=== PATIENT | male | born 1945 | race Hispanic/Latino ===

== ENCOUNTER 2021-12-10 13:59 | Inpatient (IN) | payer MEDICARE, MEDICAID ==
[2021-12-11 10:26] LABS: Basophils % (Auto) 0.4 % (0.0-1.8); Eosinophils # (Auto) 0.1 K/mm3 (0.0-0.4); Eosinophils % (Auto) 1.5 % (0.0-4.3); Hematocrit 37.5 % (35.5-45.6); Hemoglobin 12.2 gm/dl (11.8-15.2); Lymphocytes % (Auto) 22.4 % (13.4-35.0); Mean Corpuscular HGB Conc 33 % (32-34); Mean Corpuscular Volume 102 fl (84-94); Monocytes # (Auto) 0.5 K/mm3 (0.0-0.8); Platelet Count 163 K/mm3 (140-440); Red Blood Count 3.67 M/mm3 (3.65-5.03); Red Cell Distribution Width 15.6 % (13.2-15.2)
[2021-12-11 10:49] LABS: Alanine Aminotransferase 15 units/L (7-56); Albumin 4.1 g/dL (3.9-5); BUN/Creatinine Ratio 19; Blood Urea Nitrogen 21 mg/dL (9-20); Calcium 9.3 mg/dL (8.4-10.2); Chol/HDL Ratio 1.81 %; HDL Cholesterol 102 mg/dL (40-59); Hemolysis Index 3; LDL Cholesterol,Direct 75 mg/dL (50-130)
--- NOTE | 2021-12-11 11:38 | History and Physical Report ---
GP History & Physical - History of Present Illness Date of admission: 12/10/21 Date of Examination: 12/11/21 Reason for Admission: Danger to self, Failure of Outpatient Treatment, Severe anxiety/depression History of Present Illness: The patient was seen today. He is a 76y/o male patient admitted to [facility] for suicidal thoughts and depression. The patient had a plan to shoot himself in the head, prior to arrival. The patient is [place]. He says he endorses crack use. The patient also says he drinks about a pint or two pints daily. He says he is lonely, has no family and lacks support. The patient denies being on any psych meds or seeing a psychiatrist. He denies hallucinations. PAST PSYCHIATRIC HISTORY: Diagnoses: Denies Suicide attempts or Self-harm behavior: Denies Prior psychiatric hospitalizations: Denies Substance Abuse history: crack, alcohol Previous psychiatric medications tried: Could not recall Outpatient treatment: Denies PAST MEDICAL HISTORY: Prostate CA Family Psychiatric History: None reported or documented SOCIAL HISTORY Marital Status: Living Arrangements: alone Employment Status: Retired Access to guns/weapons: Denies Education: History of Abuse:Denies Legal History: Denies REVIEW OF SYSTEMS Constitutional: Negative for weight loss ENT: Negative for stridor Respiratory: Negative for cough or hemoptysis All other systems reviewed and are negative MENTAL STATUS EXAMINATION General Appearance and Behavior: Age appropriate, wearing appropriate clothes, cooperative, polite with questioning, good eye contact Cooperation: cooperative Psychomotor Behavior: Psychomotor normal Mood: Depressed Affect and affective range: congruent with stated affect Thought Process: goal directed Thought Content: None Speech: Normal volume, Regular rate and rhythm Suicidal Ideation: Yes Homicidal Ideation: Denies Hallucination: Denies Delusions: None elicited Impulse Control: Limited Insight and Judgment: Limited Memory: Intact Attention: attentive Orientation: Alert and oriented Diagnoses: Major Depressive Disorder Cocaine Use Disorder Alcohol Dependence Treatment Plan Patient admitted for inpatient psychiatric evaluation, medication adjustment and close monitoring The patient's behavior, mood, sleep and appetite will be closely monitored. Patient enrolled in individual and group therapeutic sessions and encouraged to attend. Patient provided with a safe and structured environment. Patient's physical health needs will be addressed by the Hospitalist. Hospitalist Consulted Labs including CBC, CMP, Lipid profile and Hemoglobin A1C levels ordered for baseline reference Social Assessment will be completed and the Director Safety Council will work with patient and family to ensure a suitable and safe disposition Medication adjustment will be made as clinically indicated Lexapro 5mg po daily Trazodone 50mg po qhs Folic 1mg po daily Multivit daily CIWA Usual Wellness Mandaeism/Preservation The patient agreed on the treatment plan, understood the risk, benefit, alternative treatment, potential consequence of no treatment, and gave informed consent. Estimated days: 7 Post hospital care: primary care provider, psychiatric provider Case staffed with Dr. Briggs Legal Status: Voluntary Reaction to Hospitalization: Accepting Medications and Allergies Allergies Allergy/AdvReac Type Severity Reaction Status Date / Time No Known Allergies Allergy Verified 12/11/21 02:05 Home Medications Medication Instructions Recorded Confirmed Last Taken Type Amoxicillin [Amoxicillin TAB] 875 mg PO BID 12/11/21 12/11/21 Unknown History Results - Results Labs/Vitals: Laboratory Last Values WBC 4.3 K/mm3 (4.5-11.0) L 12/11/21 09:26 RBC 3.67 M/mm3 (3.65-5.03) 12/11/21 09:26 Hgb 12.2 gm/dl (11.8-15.2) 12/11/21 09:26 Hct 37.5 % (35.5-45.6) 12/11/21 09:26 MCV 102 fl (84-94) H 12/11/21 09:26 MCH 33 pg (28-32) H 12/11/21 09:26 MCHC 33 % (32-34) 12/11/21 09:26 RDW 15.6 % (13.2-15.2) H 12/11/21 09:26 Plt Count 163 K/mm3 (140-440) 12/11/21 09:26 Lymph % (Auto) 22.4 % (13.4-35.0) 12/11/21 09:26 [place] % (Auto) 11.0 % (0.0-7.3) H 12/11/21 09:26 Eos % (Auto) 1.5 % (0.0-4.3) 12/11/21 09:26 Baso % (Auto) 0.4 % (0.0-1.8) 12/11/21 09:26 Lymph # (Auto) 1.0 K/mm3 (1.2-5.4) L 12/11/21 09:26 [place] # (Auto) 0.5 K/mm3 (0.0-0.8) 12/11/21 09:26 Eos # (Auto) 0.1 K/mm3 (0.0-0.4) 12/11/21 09:26 Baso # (Auto) 0.0 K/mm3 (0.0-0.1) 12/11/21 09:26 Seg Neutrophils % 64.7 % (40.0-70.0) 12/11/21 09:26 Seg Neutrophils # 2.8 K/mm3 (1.8-7.7) 12/11/21 09:26 Sodium 142 mmol/L (137-145) 12/11/21 09:26 Potassium 4.6 mmol/L (3.6-5.0) 12/11/21 09:26 Chloride 103.9 mmol/L (98-107) 12/11/21 09:26 Carbon Dioxide 33 mmol/L (22-30) H 12/11/21 09:26 Anion Gap 10 mmol/L 12/11/21 09:26 BUN 21 mg/dL (9-20) H 12/11/21 09:26 Creatinine 1.1 mg/dL (0.8-1.3) 12/11/21 09:26 Estimated GFR > 60 ml/min 12/11/21 09:26 BUN/Creatinine Ratio 19 % 12/11/21 09:26 Glucose 62 mg/dL (75-100) L 12/11/21 09:26 Hemoglobin A1c 5.2 % (4-6) 12/11/21 09:26 Calcium 9.3 mg/dL (8.4-10.2) 12/11/21 09:26 Total Bilirubin 0.30 mg/dL (0.1-1.2) 12/11/21 09:26 AST 22 units/L (5-40) 12/11/21 09:26 ALT 15 units/L (7-56) 12/11/21 09:26 Alkaline Phosphatase 63 units/L (35-129) 12/11/21 09:26 Total Protein 6.1 g/dL (6.3-8.2) L 12/11/21 09:26 Albumin 4.1 g/dL (3.9-5) 12/11/21 09:26 Albumin/Globulin Ratio 2.1 % 12/11/21 09:26 Triglycerides 100 mg/dL (2-149) 12/11/21 09:26 Cholesterol 185 mg/dL (50-199) 12/11/21 09:26 LDL Cholesterol Direct 75 mg/dL (50-130) 12/11/21 09:26 HDL Cholesterol 102 mg/dL (40-59) H 12/11/21 09:26 Cholesterol/HDL Ratio 1.81 % 12/11/21 09:26 TSH 1.130 mlU/mL (0.270-4.200) 12/11/21 09:26 Last Vital Signs Temp 98.4 F 12/11/21 06:04 Pulse 65 12/11/21 06:04 Resp 12/11/21 06:04 BP 144/74 12/11/21 06:04 Pulse Ox 98 12/11/21 06:04 Physical Examination - Constitutional Vitals: Vital Signs Temp Pulse Resp BP Pulse Ox 98.4 F 65 17 144/74 98 12/11/21 06:04 12/11/21 06:04 12/11/21 06:04 12/11/21 06:04 12/11/21 06:04 Temperature -Last 24 Hours Temperature 98.4 F Temperature 98.9 F Mental Status Exam - Vital signs Last Vital Signs Temp 98.4 F 12/11/21 06:04 Pulse 65 12/11/21 06:04 Resp 12/11/21 06:04 BP 144/74 12/11/21 06:04 Pulse Ox 98 12/11/21 06:04 Physician Certification - Certification Statement Physician Certification Statement: This is an acknowledgement statement that SHAHNZA GONZALES is a 76 year old M who requires inpatient psychiatric admission for treatment which could reasonably be expected to improve the patient's condition for Estimated period of time patient will need to remain in the hospital: [ ] Plan for post-hospital care: [ ]
[2021-12-11] MEDS ORDERED: LORazepam 2 MG/ML VIAL IV PRN (11:42)
[2021-12-11] MEDS ORDERED: NON-FORMULARY EACH (Amoxicillin [Amoxicillin Tab] 875 MG Tablet) PO SCH (11:45)
[2021-12-11] MEDS: FOLIC ACID 1 MG TAB PO SCH (12:49)
[2021-12-11] MEDS: MULTIVITAMINS ,THERAPEUTIC TAB PO SCH (12:49)
[2021-12-11] MEDS ORDERED: ESCITALOPRAM 10 MG TAB PO SCH (13:00)
[2021-12-11] MEDS: AMOXICILLIN/K CLAV 875/125MG TAB PO SCH ×2 (13:01→22:32)
--- NOTE | 2021-12-11 16:21 | Consultation ---
History of Present Illness - Reason for Consult Consult date: 12/11/21 Medical management - History of Present Illness The patient is a 76-year-old male past medical history of major depressive disorder who was admitted to the [facility] psych floor for suicidal thoughts and worsening depression. The patient had a plan to shoot himself in the head prior to arrival. With further questioning, the patient endorsed polysubstance dependence such as crack cocaine and increased alcohol consumption (approximately 1-2 pints daily). Patient lives alone and has extremely limited social support. The hospitalist service was consulted for medical management. Past History Past Medical History: other (Major depressive disorder) Past Surgical History: No surgical history Social history: single, Lives alone, alcohol abuse, full code, other (Crack cocaine dependence) Family history: no significant family history Medications and Allergies Allergies Allergy/AdvReac Type Severity Reaction Status Date / Time No Known Allergies Allergy Verified 12/11/21 02:05 Home Medications Medication Instructions Recorded Confirmed Last Taken Type Amoxicillin [Amoxicillin TAB] 875 mg PO BID 12/11/21 12/11/21 Unknown History Active Meds: Active Medications Amoxicillin/Clavulanate Potassium (Amoxicillin/K Clav 875/125mg Tab) 1 each PO Q12HR [facility] Stop: 12/18/21 13:59 Last Admin: 12/11/21 13:01 Dose: 1 each Escitalopram Oxalate (Escitalopram 10 Mg Tab) 5 mg PO QDAY [facility] Last Admin: 12/11/21 12:49 Dose: 5 mg Folic Acid (Folic Acid 1 Mg Tab) 1 mg PO QDAY [facility] Last Admin: 12/11/21 12:49 Dose: 1 mg Lorazepam (Lorazepam 2 Mg/Ml Vial) 2 mg IV Q4H PRN PRN Reason: CIWA-Ar 8-15 Multivitamins (Multivitamins ,Therapeutic Tab) 1 each PO QDAY [facility] Last Admin: 12/11/21 12:49 Dose: 1 each Trazodone HCl (Trazodone 50 Mg Tab) 50 mg PO QHS [facility] Review of Systems All systems: negative Psychiatric: suicidal ideation, depression, hopelessness Exam - Constitutional Vitals: Temp Pulse Resp BP Pulse Ox 98.4 F 65 17 144/74 98 12/11/21 06:04 12/11/21 06:04 12/11/21 06:04 12/11/21 06:04 12/11/21 06:04 General appearance: Present: no acute distress - EENT Eyes: Present: PERRL, EOM intact ENT: hearing intact, clear oral mucosa - Neck Neck: Present: supple, normal ROM - Respiratory Respiratory effort: normal Respiratory: bilateral: CTA - Cardiovascular Rhythm: regular Heart Sounds: Present: S1 & S2 - Extremities Extremities: no ischemia, pulses intact, pulses symmetrical, No edema, normal temperature, normal color Peripheral Pulses: within normal limits - Abdominal General gastrointestinal: Present: soft, non-tender, non-distended, normal bowel sounds Male genitourinary: Present: deferred - Rectal Rectal Exam: deferred - Integumentary Integumentary: Present: clear, warm, dry - Musculoskeletal Musculoskeletal: generalized weakness - Neurologic Neurologic: CNII-XII intact, moves all extremities - Allied Health Allied health notes reviewed: nursing Results - Labs CBC & Chem 7: 12/11/21 09:26 12/11/21 09:26 Labs: Abnormal lab results 12/11/21 12/11/21 Range/Units 09: 09:26 WBC 4.3 L (4.5-11.0) K/mm3 MCV 102 H (84-94) fl MCH 33 H (28-32) pg RDW 15.6 H (13.2-15.2) % [place] % (Auto) 11.0 H (0.0-7.3) % Lymph # (Auto) 1.0 L (1.2-5.4) K/mm3 Carbon Dioxide 33 H (22-30) mmol/L BUN 21 H (9-20) mg/dL Glucose 62 L (75-100) mg/dL Total Protein 6.1 L (6.3-8.2) g/dL HDL Cholesterol 102 H (40-59) mg/dL Assessment and Plan The patient is a 76-year-old male past medical history of major depressive disorder who was admitted to the [facility] psych floor for suicidal thoughts and worsening depression. The patient had a plan to shoot himself in the head prior to arrival. With further questioning, the patient endorsed polysubstance dependence such as crack cocaine and increased alcohol consumption ( approximately 1-2 pints daily). Patient lives alone and has extremely limited social support. The hospitalist service was consulted for medical management. #Suicidal ideation #Major depressive disorder Management per primary team #Possible acute cystitis without hematuria - Continue augmentin 875/125mg q12hrs x5 days #Advanced care planning -Disease education conducted, care plan discussed, diagnoses discussed, pro gnosis discussed, and patient acknowledges understanding with care plan -Time: +30 min Thank you for this interesting consult. Hospitalist service will continue to follow. Please do not hesitate to reach out should any questions arise.
[2021-12-11] MEDS ORDERED: traZODone 50 MG TAB PO SCH (22:00)
--- NOTE | 2021-12-12 07:40 | Progress Note ---
Subjective Date of service: 12/12/21 Principal diagnosis: MDD Subjective Comment: The patient was seen today. He still endorses suicidal thoughts, but denies a plan. He says he's very depressed. The patient says he only slept "so-so." He denies hallucinations of any kind. REVIEW OF SYSTEMS Constitutional: Negative for weight loss ENT: Negative for stridor Respiratory: Negative for cough or hemoptysis All other systems reviewed and are negative MENTAL STATUS EXAMINATION General Appearance and Behavior: Age appropriate, wearing appropriate clothes, cooperative, polite with questioning, good eye contact Cooperation: cooperative Psychomotor Behavior: Psychomotor normal Mood: Depressed Affect and affective range: congruent with stated affect Thought Process: goal directed Thought Content: None Speech: Normal volume, Regular rate and rhythm Suicidal Ideation: Yes Homicidal Ideation: Denies Hallucination: Denies Delusions: None elicited Impulse Control: Limited Insight and Judgment: Limited Memory: Intact Attention: attentive Orientation: Alert and oriented Diagnoses: Major Depressive Disorder Cocaine Use Disorder Alcohol Dependence Treatment Plan Patient admitted for inpatient psychiatric evaluation, medication adjustment and close monitoring The patient's behavior, mood, sleep and appetite will be closely monitored. Patient enrolled in individual and group therapeutic sessions and encouraged to attend. Patient provided with a safe and structured environment. Patient's physical health needs will be addressed by the Hospitalist. Hospitalist Consulted Labs including CBC, CMP, Lipid profile and Hemoglobin A1C levels ordered for baseline reference Social Assessment will be completed and the Information And Data Architect Analyst will work with patient and family to ensure a suitable and safe disposition Medication adjustment will be made as clinically indicated Increase Lexapro 10mg po daily Increase Trazodone 100mg po qhs Usual Wellness Denominational/Preservation The patient agreed on the treatment plan, understood the risk, benefit, alternative treatment, potential consequence of no treatment, and gave informed consent. Estimated days: 7 Post hospital care: primary care provider, psychiatric provider Case staffed with Dr. Briggs Medications and Allergies Allergies Allergy/AdvReac Type Severity Reaction Status Date / Time No Known Allergies Allergy Verified 12/11/21 02:05 Home Medications Medication Instructions Recorded Confirmed Last Taken Type Amoxicillin [Amoxicillin TAB] 875 mg PO BID 12/11/21 12/11/21 Unknown History Active Meds: Active Medications Amoxicillin/Clavulanate Potassium (Amoxicillin/K Clav 875/125mg Tab) 1 each PO Q12HR [facility] Stop: 12/18/21 13:59 Last Admin: 12/11/21 22:32 Dose: 1 each Escitalopram Oxalate (Escitalopram 10 Mg Tab) 5 mg PO QDAY [facility] Last Admin: 12/11/21 12:49 Dose: 5 mg Folic Acid (Folic Acid 1 Mg Tab) 1 mg PO QDAY [facility] Last Admin: 12/11/21 12:49 Dose: 1 mg Lorazepam (Lorazepam 2 Mg/Ml Vial) 2 mg IV Q4H PRN PRN Reason: CIWA-Ar 8-15 Multivitamins (Multivitamins ,Therapeutic Tab) 1 each PO QDAY [facility] Last Admin: 12/11/21 12:49 Dose: 1 each Trazodone HCl (Trazodone 50 Mg Tab) 50 mg PO QHS [facility] Last Admin: 12/11/21 22:21 Dose: 50 mg Results - Results Labs/Vitals: Laboratory Last Values WBC 4.3 K/mm3 (4.5-11.0) L 12/11/21 09:26 RBC 3.67 M/mm3 (3.65-5.03) 12/11/21 09:26 Hgb 12.2 gm/dl (11.8-15.2) 12/11/21 09:26 Hct 37.5 % (35.5-45.6) 12/11/21 09:26 MCV 102 fl (84-94) H 12/11/21 09:26 MCH 33 pg (28-32) H 12/11/21 09:26 MCHC 33 % (32-34) 12/11/21 09:26 RDW 15.6 % (13.2-15.2) H 12/11/21 09:26 Plt Count 163 K/mm3 (140-440) 12/11/21 09:26 Lymph % (Auto) 22.4 % (13.4-35.0) 12/11/21 09:26 [place] % (Auto) 11.0 % (0.0-7.3) H 12/11/21 09:26 Eos % (Auto) 1.5 % (0.0-4.3) 12/11/21 09:26 Baso % (Auto) 0.4 % (0.0-1.8) 12/11/21 09:26 Lymph # (Auto) 1.0 K/mm3 (1.2-5.4) L 12/11/21 09:26 [place] # (Auto) 0.5 K/mm3 (0.0-0.8) 12/11/21 09:26 Eos # (Auto) 0.1 K/mm3 (0.0-0.4) 12/11/21 09:26 Baso # (Auto) 0.0 K/mm3 (0.0-0.1) 12/11/21 09:26 Seg Neutrophils % 64.7 % (40.0-70.0) 12/11/21 09:26 Seg Neutrophils # 2.8 K/mm3 (1.8-7.7) 12/11/21 09:26 Sodium 142 mmol/L (137-145) 12/11/21 09:26 Potassium 4.6 mmol/L (3.6-5.0) 12/11/21 09:26 Chloride 103.9 mmol/L (98-107) 12/11/21 09:26 Carbon Dioxide 33 mmol/L (22-30) H 12/11/21 09:26 Anion Gap 10 mmol/L 12/11/21 09:26 BUN 21 mg/dL (9-20) H 12/11/21 09:26 Creatinine 1.1 mg/dL (0.8-1.3) 12/11/21 09:26 Estimated GFR > 60 ml/min 12/11/21 09:26 BUN/Creatinine Ratio 19 % 12/11/21 09:26 Glucose 62 mg/dL (75-100) L 12/11/21 09:26 Hemoglobin A1c 5.2 % (4-6) 12/11/21 09:26 Calcium 9.3 mg/dL (8.4-10.2) 12/11/21 09:26 Total Bilirubin 0.30 mg/dL (0.1-1.2) 12/11/21 09:26 AST 22 units/L (5-40) 12/11/21 09:26 ALT 15 units/L (7-56) 12/11/21 09:26 Alkaline Phosphatase 63 units/L (35-129) 12/11/21 09:26 Total Protein 6.1 g/dL (6.3-8.2) L 12/11/21 09:26 Albumin 4.1 g/dL (3.9-5) 12/11/21 09:26 Albumin/Globulin Ratio 2.1 % 12/11/21 09:26 Triglycerides 100 mg/dL (2-149) 12/11/21 09:26 Cholesterol 185 mg/dL (50-199) 12/11/21 09:26 LDL Cholesterol Direct 75 mg/dL (50-130) 12/11/21 09:26 HDL Cholesterol 102 mg/dL (40-59) H 12/11/21 09:26 Cholesterol/HDL Ratio 1.81 % 12/11/21 09:26 TSH 1.130 mlU/mL (0.270-4.200) 12/11/21 09:26 Last Vital Signs Temp 98.6 F 12/11/21 23:21 Pulse 61 12/11/21 23:21 Resp 20 12/11/21 23:21 BP 155/62 12/11/21 23:21 Pulse Ox 93 12/11/21 23:21
[2021-12-12] MEDS: AMOXICILLIN/K CLAV 875/125MG TAB PO SCH ×2 (09:11→21:08)
[2021-12-12] MEDS: MULTIVITAMINS ,THERAPEUTIC TAB PO SCH (09:11)
[2021-12-12] MEDS: FOLIC ACID 1 MG TAB PO SCH (09:11)
[2021-12-12] MEDS ORDERED: ESCITALOPRAM 10 MG TAB PO SCH (10:00)
--- NOTE | 2021-12-12 15:55 | Progress Note ---
Assessment and Plan Assessment and plan: The patient is a 76-year-old male past medical history of major depressive disorder who was admitted to the [facility] psych floor for suicidal thoughts and worsening depression. The patient had a plan to shoot himself in the head prior to arrival. With further questioning, the patient endorsed polysubstance dependence such as crack cocaine and increased alcohol consumption (approximately 1-2 pints daily). Patient lives alone and has extremely limited social support. The hospitalist service was consulted for medical management. #Suicidal ideation #Major depressive disorder Management per primary team #Possible acute cystitis without hematuria - Continue augmentin 875/125mg q12hrs x5 days #Advanced care planning -Disease education conducted, care plan discussed, diagnoses discussed, prognosis discussed, and patient acknowledges understanding with care plan -Time: +30 min Thank you for this interesting consult. Hospitalist service will continue to follow. Please do not hesitate to reach out should any questions arise. Disposition Plan: Continue medical management Total Time Spent with Patient (Minutes): 30 min History Interval history: No acute events overnight. Hospitalist Physical - Constitutional Vitals: Temp Pulse Resp BP Pulse Ox 97.8 F 70 18 113/58 97 12/12/21 09:11 12/12/21 09:11 12/12/21 09:11 12/12/21 09:11 12/12/21 09:11 General appearance: Present: no acute distress, well-nourished - EENT Eyes: Present: PERRL, EOM intact ENT: hearing intact, clear oral mucosa, dentition normal - Neck Neck: Present: supple, normal ROM - Respiratory Respiratory effort: normal Respiratory: bilateral: CTA - Cardiovascular Rhythm: regular Heart Sounds: Present: S1 & S2 - Extremities Extremities: no ischemia, pulses intact, pulses symmetrical, No edema, normal temperature, normal color, Full ROM Peripheral Pulses: within normal limits - Abdominal General gastrointestinal: soft, non-tender, non-distended, normal bowel sounds - Integumentary Integumentary: Present: clear, warm, dry - Psychiatric Psychiatric: appropriate mood/affect, cooperative - Neurologic Neurologic: CNII-XII intact, moves all extremities - Allied Health Allied health notes reviewed: nursing Results - Labs CBC & Chem 7: 12/11/21 09:26 12/11/21 09:26 Labs: Laboratory Last Values WBC 4.3 K/mm3 (4.5-11.0) L 12/11/21 09:26 RBC 3.67 M/mm3 (3.65-5.03) 12/11/21 09:26 Hgb 12.2 gm/dl (11.8-15.2) 12/11/21 09:26 Hct 37.5 % (35.5-45.6) 12/11/21 09:26 MCV 102 fl (84-94) H 12/11/21 09:26 MCH 33 pg (28-32) H 12/11/21 09:26 MCHC 33 % (32-34) 12/11/21 09: RDW 15.6 % (13.2-15.2) H 12/11/21 09: Plt Count 163 K/mm3 (140-440) 12/11/21 09:26 Lymph % (Auto) 22.4 % (13.4-35.0) 12/11/21 09: [place] % (Auto) 11.0 % (0.0-7.3) H 12/11/21 09:26 Eos % (Auto) 1.5 % (0.0-4.3) 12/11/21 09: Baso % (Auto) 0.4 % (0.0-1.8) 12/11/21 09:26 Lymph # (Auto) 1.0 K/mm3 (1.2-5.4) L 12/11/21 09:26 [place] # (Auto) 0.5 K/mm3 (0.0-0.8) 12/11/21 09: Eos # (Auto) 0.1 K/mm3 (0.0-0.4) 12/11/21 09:26 Baso # (Auto) 0.0 K/mm3 (0.0-0.1) 12/11/21 09: Seg Neutrophils % 64.7 % (40.0-70.0) 12/11/21 09: Seg Neutrophils # 2.8 K/mm3 (1.8-7.7) 12/11/21 09:26 Sodium 142 mmol/L (137-145) 12/11/21 09:26 Potassium 4.6 mmol/L (3.6-5.0) 12/11/21 09: Chloride 103.9 mmol/L (98-107) 12/11/21 09:26 Carbon Dioxide 33 mmol/L (22-30) H 12/11/21 09:26 Anion Gap 10 mmol/L 12/11/21 09:26 BUN 21 mg/dL (9-20) H 12/11/21 09:26 Creatinine 1.1 mg/dL (0.8-1.3) 12/11/21 09:26 Estimated GFR > 60 ml/min 12/11/21 09:26 BUN/Creatinine Ratio 19 % 12/11/21 09:26 Glucose 62 mg/dL (75-100) L 12/11/21 09:26 Hemoglobin A1c 5.2 % (4-6) 12/11/21 09:26 Calcium 9.3 mg/dL (8.4-10.2) 12/11/21 09:26 Total Bilirubin 0.30 mg/dL (0.1-1.2) 12/11/21 09:26 AST 22 units/L (5-40) 12/11/21 09:26 ALT 15 units/L (7-56) 12/11/21 09:26 Alkaline Phosphatase 63 units/L (35-129) 12/11/21 09:26 Total Protein 6.1 g/dL (6.3-8.2) L 12/11/21 09:26 Albumin 4.1 g/dL (3.9-5) 12/11/21 09:26 Albumin/Globulin Ratio 2.1 % 12/11/21 09:26 Triglycerides 100 mg/dL (2-149) 12/11/21 09:26 Cholesterol 185 mg/dL (50-199) 12/11/21 09:26 LDL Cholesterol Direct 75 mg/dL (50-130) 12/11/21 09:26 HDL Cholesterol 102 mg/dL (40-59) H 12/11/21 09:26 Cholesterol/HDL Ratio 1.81 % 12/11/21 09:26 TSH 1.130 mlU/mL (0.270-4.200) 12/11/21 09:26 Connell/IV: Voiding Method Toilet Active Medications - Current Medications Current Medications: Generic Name Dose Route Start Last Admin Trade Name Freq PRN Reason Stop Dose Admin Amoxicillin/Clavulanate Potassium 1 each 12/11/21 14:00 12/12/21 09:11 Amoxicillin/K Clav 875/125mg Tab PO 12/18/21 13:59 1 each Q12HR [facility] Administration Escitalopram Oxalate 10 mg 12/12/21 10:00 12/12/21 09:11 Escitalopram 10 Mg Tab PO 10 mg QDAY [facility] Administration Folic Acid 1 mg 12/11/21 12:00 12/12/21 09:11 Folic Acid 1 Mg Tab PO 1 mg QDAY [facility] Administration Lorazepam 2 mg 12/11/21 11:42 Lorazepam 2 Mg/Ml Vial IV Q4H PRN Harsha 8-15 Multivitamins 1 each 12/11/21 13:00 12/12/21 09:11 Multivitamins ,Therapeutic Tab PO 1 each QDAY [facility] Administration Trazodone HCl 100 mg 12/12/21 22:00 Trazodone 100 Mg Tab PO QHS [facility]
[2021-12-12] MEDS: traZODone 100 MG TAB PO SCH (21:07)
--- NOTE | 2021-12-13 08:42 | Progress Note ---
Subjective Date of service: 12/13/21 Principal diagnosis: MDD Subjective Comment: The patient was seen today. He says he is not good. The patient says he still feels depressed and suicidal. He denies having a plan to harm himself. He denies hallucinations. REVIEW OF SYSTEMS Constitutional: Negative for weight loss ENT: Negative for stridor Respiratory: Negative for cough or hemoptysis All other systems reviewed and are negative MENTAL STATUS EXAMINATION General Appearance and Behavior: Age appropriate, wearing appropriate clothes, cooperative, polite with questioning, good eye contact Cooperation: cooperative Psychomotor Behavior: Psychomotor normal Mood: Depressed Affect and affective range: congruent with stated affect Thought Process: goal directed Thought Content: None Speech: Normal volume, Regular rate and rhythm Suicidal Ideation: Yes Homicidal Ideation: Denies Hallucination: Denies Delusions: None elicited Impulse Control: Limited Insight and Judgment: Limited Memory: Intact Attention: attentive Orientation: Alert and oriented Diagnoses: Major Depressive Disorder Cocaine Use Disorder Alcohol Dependence Treatment Plan Patient admitted for inpatient psychiatric evaluation, medication adjustment and close monitoring The patient's behavior, mood, sleep and appetite will be closely monitored. Patient enrolled in individual and group therapeutic sessions and encouraged to attend. Patient provided with a safe and structured environment. Patient's physical health needs will be addressed by the Hospitalist. Hospitalist Consulted Labs including CBC, CMP, Lipid profile and Hemoglobin A1C levels ordered for baseline reference Social Assessment will be completed and the [employer] Supervisor will work with patient and family to ensure a suitable and safe disposition Medication adjustment will be made as clinically indicated Increase Lexapro 20mg po daily Increase Depakote DR 125mg po BID Trazodone 100mg po qhs Usual Wellness [employer]/Preservation The patient agreed on the treatment plan, understood the risk, benefit, alternative treatment, potential consequence of no treatment, and gave informed consent. Estimated days: 7 Post hospital care: primary care provider, psychiatric provider Case staffed with Dr. Briggs Medications and Allergies Allergies Allergy/AdvReac Type Severity Reaction Status Date / Time No Known Allergies Allergy Verified 12/11/21 02:05 Home Medications Medication Instructions Recorded Confirmed Last Taken Type Amoxicillin [Amoxicillin TAB] 875 mg PO BID 12/11/21 12/11/21 Unknown History Active Meds: Active Medications Amoxicillin/Clavulanate Potassium (Amoxicillin/K Clav 875/125mg Tab) 1 each PO Q12HR [facility] Stop: 12/18/21 13:59 Last Admin: 12/12/21 21:08 Dose: 1 each Escitalopram Oxalate (Escitalopram 10 Mg Tab) 10 mg PO QDAY [facility] Last Admin: 12/12/21 09:11 Dose: 10 mg Folic Acid (Folic Acid 1 Mg Tab) 1 mg PO QDAY [facility] Last Admin: 12/12/21 09:11 Dose: 1 mg Lorazepam (Lorazepam 2 Mg/Ml Vial) 2 mg IV Q4H PRN PRN Reason: CIWA-Ar 8-15 Multivitamins (Multivitamins ,Therapeutic Tab) 1 each PO QDAY [facility] Last Admin: 12/12/21 09:11 Dose: 1 each Trazodone HCl (Trazodone 100 Mg Tab) 100 mg PO QHS [facility] Last Admin: 12/12/21 21:07 Dose: 100 mg Results - Results Labs/Vitals: Laboratory Last Values WBC 4.3 K/mm3 (4.5-11.0) L 12/11/21 09:26 RBC 3.67 M/mm3 (3.65-5.03) 12/11/21 09:26 Hgb 12.2 gm/dl (11.8-15.2) 12/11/21 09:26 Hct 37.5 % (35.5-45.6) 12/11/21 09:26 MCV 102 fl (84-94) H 12/11/21 09:26 MCH 33 pg (28-32) H 12/11/21 09:26 MCHC 33 % (32-34) 12/11/21 09:26 RDW 15.6 % (13.2-15.2) H 12/11/21 09:26 Plt Count 163 K/mm3 (140-440) 12/11/21 09:26 Lymph % (Auto) 22.4 % (13.4-35.0) 12/11/21 09:26 [place] % (Auto) 11.0 % (0.0-7.3) H 12/11/21 09:26 Eos % (Auto) 1.5 % (0.0-4.3) 12/11/21 09:26 Baso % (Auto) 0.4 % (0.0-1.8) 12/11/21 09:26 Lymph # (Auto) 1.0 K/mm3 (1.2-5.4) L 12/11/21 09:26 [place] # (Auto) 0.5 K/mm3 (0.0-0.8) 12/11/21 09:26 Eos # (Auto) 0.1 K/mm3 (0.0-0.4) 12/11/21 09:26 Baso # (Auto) 0.0 K/mm3 (0.0-0.1) 12/11/21 09:26 Seg Neutrophils % 64.7 % (40.0-70.0) 12/11/21 09:26 Seg Neutrophils # 2.8 K/mm3 (1.8-7.7) 12/11/21 09:26 Sodium 142 mmol/L (137-145) 12/11/21 09:26 Potassium 4.6 mmol/L (3.6-5.0) 12/11/21 09:26 Chloride 103.9 mmol/L (98-107) 12/11/21 09:26 Carbon Dioxide 33 mmol/L (22-30) H 12/11/21 09:26 Anion Gap 10 mmol/L 12/11/21 09:26 BUN 21 mg/dL (9-20) H 12/11/21 09:26 Creatinine 1.1 mg/dL (0.8-1.3) 12/11/21 09:26 Estimated GFR > 60 ml/min 12/11/21 09:26 BUN/Creatinine Ratio 19 % 12/11/21 09:26 Glucose 62 mg/dL (75-100) L 12/11/21 09:26 Hemoglobin A1c 5.2 % (4-6) 12/11/21 09:26 Calcium 9.3 mg/dL (8.4-10.2) 12/11/21 09:26 Total Bilirubin 0.30 mg/dL (0.1-1.2) 12/11/21 09:26 AST 22 units/L (5-40) 12/11/21 09:26 ALT 15 units/L (7-56) 12/11/21 09:26 Alkaline Phosphatase 63 units/L (35-129) 12/11/21 09:26 Total Protein 6.1 g/dL (6.3-8.2) L 12/11/21 09:26 Albumin 4.1 g/dL (3.9-5) 12/11/21 09:26 Albumin/Globulin Ratio 2.1 % 12/11/21 09:26 Triglycerides 100 mg/dL (2-149) 12/11/21 09:26 Cholesterol 185 mg/dL (50-199) 12/11/21 09:26 LDL Cholesterol Direct 75 mg/dL (50-130) 12/11/21 09:26 HDL Cholesterol 102 mg/dL (40-59) H 12/11/21 09:26 Cholesterol/HDL Ratio 1.81 % 12/11/21 09:26 TSH 1.130 mlU/mL (0.270-4.200) 12/11/21 09:26 Last Vital Signs Temp 98.6 F 12/12/21 19:46 Pulse 62 12/12/21 19:46 Resp 18 12/12/21 19:46 BP 140/54 12/12/21 19:46 Pulse Ox 98 12/12/21 19:46
[2021-12-13] MEDS ORDERED: ONDANSETRON 4 MG ODT TAB PO PRN (08:44)
[2021-12-13] MEDS: FOLIC ACID 1 MG TAB PO SCH (10:16)
[2021-12-13] MEDS: DIVALPROEX DR 125 MG TAB PO SCH ×2 (10:16→22:12)
[2021-12-13] MEDS: MULTIVITAMINS ,THERAPEUTIC TAB PO SCH (10:16)
[2021-12-13] MEDS: AMOXICILLIN/K CLAV 875/125MG TAB PO SCH ×2 (10:16→22:12)
[2021-12-13] MEDS: ESCITALOPRAM 10 MG TAB PO SCH (10:16)
--- NOTE | 2021-12-13 13:49 | Progress Note ---
Assessment and Plan Assessment and plan: The patient is a 76-year-old male past medical history of major depressive disorder who was admitted to the [facility] floor for suicidal thoughts and worsening depression. The patient had a plan to shoot himself in the head prior to arrival. With further questioning, the patient endorsed polysubstance dependence such as crack cocaine and increased alcohol consumption (approximately 1-2 pints daily). Patient lives alone and has extremely limited social support. The hospitalist service was consulted for medical management. #Suicidal ideation #Major depressive disorder Management per primary team #Possible acute cystitis without hematuria - Continue augmentin 875/125mg q12hrs x5 days #Advanced care planning -Disease education conducted, care plan discussed, diagnoses discussed, prognosis discussed, and patient acknowledges understanding with care plan -Time: +30 min Thank you for this interesting consult. Hospitalist service will continue to follow. Please do not hesitate to reach out should any questions arise. Disposition Plan: Continue medical management Total Time Spent with Patient (Minutes): 30 minutes History Interval history: No acute events overnight. Hospitalist Physical - Constitutional Vitals: Temp Pulse Resp BP Pulse Ox 97.8 F 66 18 105/51 97 12/13/21 08:33 12/13/21 08:33 12/13/21 08:33 12/13/21 08:33 12/13/21 08:33 General appearance: Present: no acute distress, well-nourished - EENT Eyes: Present: PERRL, EOM intact ENT: hearing intact, clear oral mucosa - Neck Neck: Present: supple, normal ROM - Respiratory Respiratory effort: normal Respiratory: bilateral: CTA - Cardiovascular Rhythm: regular Heart Sounds: Present: S1 & S2 - Extremities Extremities: no ischemia, pulses intact, pulses symmetrical, No edema, normal temperature, normal color Peripheral Pulses: within normal limits - Abdominal General gastrointestinal: soft, non-tender, non-distended, normal bowel sounds - Integumentary Integumentary: Present: clear, warm, dry - Psychiatric Psychiatric: depressed - Neurologic Neurologic: CNII-XII intact, moves all extremities - Allied Health Allied health notes reviewed: nursing Results - Labs CBC & Chem 7: 12/11/21 09:26 12/11/21 09:26 Labs: Laboratory Last Values WBC 4.3 K/mm3 (4.5-11.0) L 12/11/21 09:26 RBC 3.67 M/mm3 (3.65-5.03) 12/11/21 09:26 Hgb 12.2 gm/dl (11.8-15.2) 12/11/21 09: Hct 37.5 % (35.5-45.6) 12/11/21 09:26 MCV 102 fl (84-94) H 12/11/21 09: MCH 33 pg (28-32) H 12/11/21 09:26 MCHC 33 % (32-34) 12/11/21 09:26 RDW 15.6 % (13.2-15.2) H 12/11/21 09:26 Plt Count 163 K/mm3 (140-440) 12/11/21 09:26 Lymph % (Auto) 22.4 % (13.4-35.0) 12/11/21 09: [place] % (Auto) 11.0 % (0.0-7.3) H 12/11/21 09:26 Eos % (Auto) 1.5 % (0.0-4.3) 12/11/21 09:26 Baso % (Auto) 0.4 % (0.0-1.8) 12/11/21 09: Lymph # (Auto) 1.0 K/mm3 (1.2-5.4) L 12/11/21 09:26 [place] # (Auto) 0.5 K/mm3 (0.0-0.8) 12/11/21 09: Eos # (Auto) 0.1 K/mm3 (0.0-0.4) 12/11/21 09: Baso # (Auto) 0.0 K/mm3 (0.0-0.1) 12/11/21 09: Seg Neutrophils % 64.7 % (40.0-70.0) 12/11/21 09: Seg Neutrophils # 2.8 K/mm3 (1.8-7.7) 12/11/21 09:26 Sodium 142 mmol/L (137-145) 12/11/21 09:26 Potassium 4.6 mmol/L (3.6-5.0) 12/11/21 09: Chloride 103.9 mmol/L (98-107) 12/11/21 09:26 Carbon Dioxide 33 mmol/L (22-30) H 12/11/21 09:26 Anion Gap 10 mmol/L 12/11/21 09:26 BUN 21 mg/dL (9-20) H 12/11/21 09:26 Creatinine 1.1 mg/dL (0.8-1.3) 12/11/21 09:26 Estimated GFR > 60 ml/min 12/11/21 09:26 BUN/Creatinine Ratio 19 % 12/11/21 09:26 Glucose 62 mg/dL (75-100) L 12/11/21 09:26 Hemoglobin A1c 5.2 % (4-6) 12/11/21 09:26 Calcium 9.3 mg/dL (8.4-10.2) 12/11/21 09:26 Total Bilirubin 0.30 mg/dL (0.1-1.2) 12/11/21 09:26 AST 22 units/L (5-40) 12/11/21 09:26 ALT 15 units/L (7-56) 12/11/21 09:26 Alkaline Phosphatase 63 units/L (35-129) 12/11/21 09:26 Total Protein 6.1 g/dL (6.3-8.2) L 12/11/21 09:26 Albumin 4.1 g/dL (3.9-5) 12/11/21 09:26 Albumin/Globulin Ratio 2.1 % 12/11/21 09:26 Triglycerides 100 mg/dL (2-149) 12/11/21 09:26 Cholesterol 185 mg/dL (50-199) 12/11/21 09:26 LDL Cholesterol Direct 75 mg/dL (50-130) 12/11/21 09:26 HDL Cholesterol 102 mg/dL (40-59) H 12/11/21 09:26 Cholesterol/HDL Ratio 1.81 % 12/11/21 09:26 TSH 1.130 mlU/mL (0.270-4.200) 12/11/21 09:26 Connell/IV: Voiding Method Toilet Active Medications - Current Medications Current Medications: Generic Name Dose Route Start Last Admin Trade Name Freq PRN Reason Stop Dose Admin Amoxicillin/Clavulanate Potassium 1 each 12/11/21 14:00 12/13/21 10:16 Amoxicillin/K Clav 875/125mg Tab PO 12/18/21 13:59 1 each Q12HR [facility] Administration Divalproex Sodium 125 mg 12/13/21 10:00 12/13/21 10:[address] 125 Mg Tab PO 125 mg BID [facility] Administration Escitalopram Oxalate 20 mg 12/13/21 10:00 12/13/21 10:16 Escitalopram 10 Mg Tab PO 20 mg QDAY [facility] Administration Folic Acid 1 mg 12/11/21 12:00 12/13/21 10:16 Folic Acid 1 Mg Tab PO 1 mg QDAY [facility] Administration Lorazepam 2 mg 12/11/21 11:42 Lorazepam 2 Mg/Ml Vial IV Q4H PRN ALEXANDRANitin 8-15 Multivitamins 1 each 12/11/21 13:00 12/13/21 10:16 Multivitamins ,Therapeutic Tab PO 1 each QDAY [facility] Administration Ondansetron HCl 4 mg 12/13/21 08:44 12/13/21 10:16 Ondansetron 4 Mg Odt Tab PO 4 mg Q8H PRN Administration Nausea And Vomiting Trazodone HCl 100 mg 12/12/21 22:00 12/12/21 21:07 Trazodone 100 Mg Tab PO 100 mg QHS [facility] Administration
[2021-12-13] MEDS ORDERED: LORazepam 2 MG/ML VIAL IM PRN (20:07)
[2021-12-13] MEDS: traZODone 100 MG TAB PO SCH (22:12)
[2021-12-14] MEDS: MULTIVITAMINS ,THERAPEUTIC TAB PO SCH (10:00)
[2021-12-14] MEDS: ESCITALOPRAM 10 MG TAB PO SCH (10:00)
[2021-12-14] MEDS: AMOXICILLIN/K CLAV 875/125MG TAB PO SCH ×2 (10:00→21:45)
[2021-12-14] MEDS: FOLIC ACID 1 MG TAB PO SCH (10:00)
[2021-12-14] MEDS: DIVALPROEX DR 125 MG TAB PO SCH (10:00)
--- NOTE | 2021-12-14 10:07 | Progress Note ---
Subjective Date of service: 12/14/21 Principal diagnosis: MDD Subjective Comment: The patient was seen today. He says he is depressed and suicidal. The patient says he plans to borrow a gun and shoot himself. The patient denies hallucinations. He complains of being constipated. REVIEW OF SYSTEMS Constitutional: Negative for weight loss ENT: Negative for stridor Respiratory: Negative for cough or hemoptysis All other systems reviewed and are negative MENTAL STATUS EXAMINATION General Appearance and Behavior: Age appropriate, wearing appropriate clothes, cooperative, polite with questioning, good eye contact Cooperation: cooperative Psychomotor Behavior: Psychomotor normal Mood: Depressed Affect and affective range: congruent with stated affect Thought Process: goal directed Thought Content: None Speech: Normal volume, Regular rate and rhythm Suicidal Ideation: Yes Homicidal Ideation: Denies Hallucination: Denies Delusions: None elicited Impulse Control: Limited Insight and Judgment: Limited Memory: Intact Attention: attentive Orientation: Alert and oriented Diagnoses: Major Depressive Disorder Cocaine Use Disorder Alcohol Dependence Treatment Plan Patient admitted for inpatient psychiatric evaluation, medication adjustment and close monitoring The patient's behavior, mood, sleep and appetite will be closely monitored. Patient enrolled in individual and group therapeutic sessions and encouraged to attend. Patient provided with a safe and structured environment. Patient's physical health needs will be addressed by the Hospitalist. Hospitalist Consulted Labs including CBC, CMP, Lipid profile and Hemoglobin A1C levels ordered for baseline reference Social Assessment will be completed and the Supervisor Paper Testing will work with patient and family to ensure a suitable and safe disposition Medication adjustment will be made as clinically indicated Docusate 100mg po BID MOM 30ml q4h prn constipation Lexapro 20mg po daily Increase Depakote DR 250mg po BID Trazodone 100mg po qhs Usual Wellness [employer]/Preservation The patient agreed on the treatment plan, understood the risk, benefit, alternative treatment, potential consequence of no treatment, and gave informed consent. Estimated days: 7 Post hospital care: primary care provider, psychiatric provider Case staffed with Dr. Briggs Medications and Allergies Allergies Allergy/AdvReac Type Severity Reaction Status Date / Time No Known Allergies Allergy Verified 12/11/21 02:05 Home Medications Medication Instructions Recorded Confirmed Last Taken Type Amoxicillin [Amoxicillin TAB] 875 mg PO BID 12/11/21 12/11/21 Unknown History Active Meds: Active Medications Amoxicillin/Clavulanate Potassium (Amoxicillin/K Clav 875/125mg Tab) 1 each PO Q12HR [facility] Stop: 12/18/21 13:59 Last Admin: 12/14/21 10:00 Dose: 1 each Divalproex Sodium (Divalproex Dr 125 Mg Tab) 125 mg PO BID [facility] Last Admin: 12/14/21 10:00 Dose: 125 mg Escitalopram Oxalate (Escitalopram 10 Mg Tab) 20 mg PO QDAY [facility] Last Admin: 12/14/21 10:00 Dose: 20 mg Folic Acid (Folic Acid 1 Mg Tab) 1 mg PO QDAY [facility] Last Admin: 12/14/21 10:00 Dose: 1 mg Lorazepam (Lorazepam 2 Mg/Ml Vial) 2 mg IM Q4H PRN PRN Reason: AGITATION Multivitamins (Multivitamins ,Therapeutic Tab) 1 each PO QDAY [facility] Last Admin: 12/14/21 10:00 Dose: 1 each Ondansetron HCl (Ondansetron 4 Mg Odt Tab) 4 mg PO Q8H PRN PRN Reason: Nausea And Vomiting Last Admin: 12/13/21 10:16 Dose: 4 mg Trazodone HCl (Trazodone 100 Mg Tab) 100 mg PO QHS [facility] Last Admin: 12/13/21 22:12 Dose: 100 mg Results - Results Labs/Vitals: Laboratory Last Values WBC 4.3 K/mm3 (4.5-11.0) L 12/11/21 09:26 RBC 3.67 M/mm3 (3.65-5.03) 12/11/21 09:26 Hgb 12.2 gm/dl (11.8-15.2) 12/11/21 09:26 Hct 37.5 % (35.5-45.6) 12/11/21 09:26 MCV 102 fl (84-94) H 12/11/21 09:26 MCH 33 pg (28-32) H 12/11/21 09:26 MCHC 33 % (32-34) 12/11/21 09:26 RDW 15.6 % (13.2-15.2) H 12/11/21 09:26 Plt Count 163 K/mm3 (140-440) 12/11/21 09:26 Lymph % (Auto) 22.4 % (13.4-35.0) 12/11/21 09:26 [place] % (Auto) 11.0 % (0.0-7.3) H 12/11/21 09:26 Eos % (Auto) 1.5 % (0.0-4.3) 12/11/21 09:26 Baso % (Auto) 0.4 % (0.0-1.8) 12/11/21 09:26 Lymph # (Auto) 1.0 K/mm3 (1.2-5.4) L 12/11/21 09:26 [place] # (Auto) 0.5 K/mm3 (0.0-0.8) 12/11/21 09:26 Eos # (Auto) 0.1 K/mm3 (0.0-0.4) 12/11/21 09:26 Baso # (Auto) 0.0 K/mm3 (0.0-0.1) 12/11/21 09:26 Seg Neutrophils % 64.7 % (40.0-70.0) 12/11/21 09:26 Seg Neutrophils # 2.8 K/mm3 (1.8-7.7) 12/11/21 09:26 Sodium 142 mmol/L (137-145) 12/11/21 09:26 Potassium 4.6 mmol/L (3.6-5.0) 12/11/21 09:26 Chloride 103.9 mmol/L (98-107) 12/11/21 09:26 Carbon Dioxide 33 mmol/L (22-30) H 12/11/21 09:26 Anion Gap 10 mmol/L 12/11/21 09:26 BUN 21 mg/dL (9-20) H 12/11/21 09:26 Creatinine 1.1 mg/dL (0.8-1.3) 12/11/21 09:26 Estimated GFR > 60 ml/min 12/11/21 09:26 BUN/Creatinine Ratio 19 % 12/11/21 09:26 Glucose 62 mg/dL (75-100) L 12/11/21 09:26 Hemoglobin A1c 5.2 % (4-6) 12/11/21 09:26 Calcium 9.3 mg/dL (8.4-10.2) 12/11/21 09:26 Total Bilirubin 0.30 mg/dL (0.1-1.2) 12/11/21 09:26 AST 22 units/L (5-40) 12/11/21 09:26 ALT 15 units/L (7-56) 12/11/21 09:26 Alkaline Phosphatase 63 units/L (35-129) 12/11/21 09:26 Total Protein 6.1 g/dL (6.3-8.2) L 12/11/21 09:26 Albumin 4.1 g/dL (3.9-5) 12/11/21 09:26 Albumin/Globulin Ratio 2.1 % 12/11/21 09:26 Triglycerides 100 mg/dL (2-149) 12/11/21 09:26 Cholesterol 185 mg/dL (50-199) 12/11/21 09:26 LDL Cholesterol Direct 75 mg/dL (50-130) 12/11/21 09:26 HDL Cholesterol 102 mg/dL (40-59) H 12/11/21 09:26 Cholesterol/HDL Ratio 1.81 % 12/11/21 09:26 TSH 1.130 mlU/mL (0.270-4.200) 12/11/21 09:26 Last Vital Signs Temp 98.6 F 12/14/21 06:11 Pulse 58 L 12/14/21 06:11 Resp 17 12/14/21 06:11 BP 104/38 12/14/21 06:11 Pulse Ox 96 12/14/21 06:11
[2021-12-14] MEDS ORDERED: MAGNESIUM HYDROXIDE (MOM) ORAL LIQD UDC PO PRN (11:00)
[2021-12-14] MEDS: DOCUSATE SODIUM 100 MG CAP PO SCH ×2 (11:39→21:45)
--- NOTE | 2021-12-14 12:39 | Progress Note ---
Assessment and Plan Assessment and plan: The patient is a 76-year-old male past medical history of major depressive disorder who was admitted to the [facility] floor for suicidal thoughts and worsening depression. The patient had a plan to shoot himself in the head prior to arrival. With further questioning, the patient endorsed polysubstance dependence such as crack cocaine and increased alcohol consumption (approximately 1-2 pints daily). Patient lives alone and has extremely limited social support. The hospitalist service was consulted for medical management. #Suicidal ideation #Major depressive disorder Management per primary team #Possible acute cystitis without hematuria - Continue augmentin 875/125mg q12hrs x5 days #Advanced care planning -Disease education conducted, care plan discussed, diagnoses discussed, prognosis discussed, and patient acknowledges understanding with care plan -Time: +30 min Thank you for this interesting consult. Hospitalist service will continue to follow. Please do not hesitate to reach out should any questions arise. Disposition Plan: Continue medical management Total Time Spent with Patient (Minutes): 30 minutes History Interval history: No acute events overnight. Hospitalist Physical - Constitutional Vitals: Temp Pulse Resp BP Pulse Ox 98.6 F 58 L 17 104/38 96 12/14/21 06:11 12/14/21 06:11 12/14/21 06:11 12/14/21 06:11 12/14/21 06:11 General appearance: Present: no acute distress, well-nourished - EENT Eyes: Present: PERRL, EOM intact ENT: hearing intact, clear oral mucosa - Neck Neck: Present: supple, normal ROM - Respiratory Respiratory effort: normal Respiratory: bilateral: CTA - Cardiovascular Rhythm: regular Heart Sounds: Present: S1 & S2 - Extremities Extremities: no ischemia, pulses intact, pulses symmetrical, No edema, normal temperature, normal color Peripheral Pulses: within normal limits - Abdominal General gastrointestinal: soft, non-tender, non-distended, normal bowel sounds - Integumentary Integumentary: Present: clear, warm, dry - Psychiatric Psychiatric: appropriate mood/affect - Neurologic Neurologic: CNII-XII intact, moves all extremities - Allied Health Allied health notes reviewed: nursing Results - Labs CBC & Chem 7: 12/11/21 09:26 12/11/21 09:26 Labs: Laboratory Last Values WBC 4.3 K/mm3 (4.5-11.0) L 12/11/21 09:26 RBC 3.67 M/mm3 (3.65-5.03) 12/11/21 09:26 Hgb 12.2 gm/dl (11.8-15.2) 12/11/21 09:26 Hct 37.5 % (35.5-45.6) 12/11/21 09:26 MCV 102 fl (84-94) H 12/11/21 09:26 MCH 33 pg (28-32) H 12/11/21 09:26 MCHC 33 % (32-34) 12/11/21 09:26 RDW 15.6 % (13.2-15.2) H 12/11/21 09:26 Plt Count 163 K/mm3 (140-440) 12/11/21 09:26 Lymph % (Auto) 22.4 % (13.4-35.0) 12/11/21 09:26 [place] % (Auto) 11.0 % (0.0-7.3) H 12/11/21 09:26 Eos % (Auto) 1.5 % (0.0-4.3) 12/11/21 09:26 Baso % (Auto) 0.4 % (0.0-1.8) 12/11/21 09: Lymph # (Auto) 1.0 K/mm3 (1.2-5.4) L 12/11/21 09:26 [place] # (Auto) 0.5 K/mm3 (0.0-0.8) 12/11/21 09: Eos # (Auto) 0.1 K/mm3 (0.0-0.4) 12/11/21 09:26 Baso # (Auto) 0.0 K/mm3 (0.0-0.1) 12/11/21 09:26 Seg Neutrophils % 64.7 % (40.0-70.0) 12/11/21 09: Seg Neutrophils # 2.8 K/mm3 (1.8-7.7) 12/11/21 09:26 Sodium 142 mmol/L (137-145) 12/11/21 09:26 Potassium 4.6 mmol/L (3.6-5.0) 12/11/21 09:26 Chloride 103.9 mmol/L (98-107) 09/09/22 09:26 Carbon Dioxide 33 mmol/L (22-30) H 12/11/21 09:26 Anion Gap 10 mmol/L 12/11/21 09:26 BUN 21 mg/dL (9-20) H 12/11/21 09:26 Creatinine 1.1 mg/dL (0.8-1.3) 12/11/21 09:26 Estimated GFR > 60 ml/min 12/11/21 09:26 BUN/Creatinine Ratio 19 % 12/11/21 09:26 Glucose 62 mg/dL (75-100) L 12/11/21 09:26 Hemoglobin A1c 5.2 % (4-6) 12/11/21 09:26 Calcium 9.3 mg/dL (8.4-10.2) 12/11/21 09:26 Total Bilirubin 0.30 mg/dL (0.1-1.2) 12/11/21 09:26 AST 22 units/L (5-40) 12/11/21 09:26 ALT 15 units/L (7-56) 12/11/21 09:26 Alkaline Phosphatase 63 units/L (35-129) 12/11/21 09:26 Total Protein 6.1 g/dL (6.3-8.2) L 12/11/21 09:26 Albumin 4.1 g/dL (3.9-5) 12/11/21 09:26 Albumin/Globulin Ratio 2.1 % 12/11/21 09:26 Triglycerides 100 mg/dL (2-149) 12/11/21 09:26 Cholesterol 185 mg/dL (50-199) 12/11/21 09:26 LDL Cholesterol Direct 75 mg/dL (50-130) 12/11/21 09:26 HDL Cholesterol 102 mg/dL (40-59) H 12/11/21 09:26 Cholesterol/HDL Ratio 1.81 % 12/11/21 09:26 TSH 1.130 mlU/mL (0.270-4.200) 12/11/21 09:26 Connell/IV: Voiding Method Toilet Active Medications - Current Medications Current Medications: Generic Name Dose Route Start Last Admin Trade Name Freq PRN Reason Stop Dose Admin Amoxicillin/Clavulanate Potassium 1 each 12/11/21 14:00 12/14/21 10:00 Amoxicillin/K Clav 875/125mg Tab PO 12/18/21 13:59 1 each Q12HR RUBIN Administration Divalproex Sodium 250 mg 12/14/21 22:[address] 250 Mg Tab PO BID RUBIN Docusate Sodium 100 mg 12/14/21 11:00 12/14/21 11:39 Docusate Sodium 100 Mg Cap PO 100 mg BID RUBIN Administration Escitalopram Oxalate 20 mg 12/13/21 10:00 12/14/21 10:00 Escitalopram 10 Mg Tab PO 20 mg QDAY R[facility] Administration Folic Acid 1 mg 12/11/21 12:00 12/14/21 10:00 Folic Acid 1 Mg Tab PO 1 mg QDAY R[facility] Administration Lorazepam 2 mg 12/13/21 20:07 Lorazepam 2 Mg/Ml Vial IM Q4H PRN AGITATION Magnesium Hydroxide 30 ml 12/14/21 11:00 12/14/21 11:39 Magnesium Hydroxide (Mom) Oral Liqd Udc PO 30 ml Q4H PRN Administration Constipation Multivitamins 1 each 12/11/21 13:00 12/14/21 10:00 Multivitamins ,Therapeutic Tab PO 1 each QDAY RUBIN Administration Ondansetron HCl 4 mg 12/13/21 08:44 12/13/21 10:16 Ondansetron 4 Mg Odt Tab PO 4 mg Q8H PRN Administration Nausea And Vomiting Trazodone HCl 100 mg 12/12/21 22:00 12/13/21 22:12 Trazodone 100 Mg Tab PO 100 mg QHS RUBIN Administration
[2021-12-14] MEDS: traZODone 100 MG TAB PO SCH (21:45)
[2021-12-14] MEDS ORDERED: DIVALPROEX DR 250 MG TAB PO SCH (22:00)
--- NOTE | 2021-12-15 08:37 | Progress Note ---
Subjective Date of service: 12/15/21 Principal diagnosis: MDD Subjective Comment: The patient was seen today. The patient says he feels a little better, but still says he's depressed. He still endorses SI. He denies a plan. REVIEW OF SYSTEMS Constitutional: Negative for weight loss ENT: Negative for stridor Respiratory: Negative for cough or hemoptysis All other systems reviewed and are negative MENTAL STATUS EXAMINATION General Appearance and Behavior: Age appropriate, wearing appropriate clothes, cooperative, polite with questioning, good eye contact Cooperation: cooperative Psychomotor Behavior: Psychomotor normal Mood: Depressed Affect and affective range: congruent with stated affect Thought Process: goal directed Thought Content: None Speech: Normal volume, Regular rate and rhythm Suicidal Ideation: Yes Homicidal Ideation: Denies Hallucination: Denies Delusions: None elicited Impulse Control: Limited Insight and Judgment: Limited Memory: Intact Attention: attentive Orientation: Alert and oriented Diagnoses: Major Depressive Disorder Cocaine Use Disorder Alcohol Dependence Treatment Plan Patient admitted for inpatient psychiatric evaluation, medication adjustment and close monitoring The patient's behavior, mood, sleep and appetite will be closely monitored. Patient enrolled in individual and group therapeutic sessions and encouraged to attend. Patient provided with a safe and structured environment. Patient's physical health needs will be addressed by the Hospitalist. Hospitalist Consulted Labs including CBC, CMP, Lipid profile and Hemoglobin A1C levels ordered for baseline reference Social Assessment will be completed and the Inner Diameter Grinder Tool will work with patient and family to ensure a suitable and safe disposition Medication adjustment will be made as clinically indicated Docusate 100mg po BID MOM 30ml q4h prn constipation Lexapro 20mg po daily Increase Depakote DR 250mg po TID Trazodone 100mg po qhs Usual Wellness Moravian/Preservation The patient agreed on the treatment plan, understood the risk, benefit, alternative treatment, potential consequence of no treatment, and gave informed consent. Estimated days: 7 Post hospital care: primary care provider, psychiatric provider Case staffed with Dr. Briggs Medications and Allergies Allergies Allergy/AdvReac Type Severity Reaction Status Date / Time No Known Allergies Allergy Verified 12/11/21 02:05 Home Medications Medication Instructions Recorded Confirmed Last Taken Type Amoxicillin [Amoxicillin TAB] 875 mg PO BID 12/11/21 12/11/21 Unknown History Active Meds: Active Medications Amoxicillin/Clavulanate Potassium (Amoxicillin/K Clav 875/125mg Tab) 1 each PO Q12HR [facility] Stop: 12/18/21 13:59 Last Admin: 12/14/21 21:45 Dose: 1 each Divalproex Sodium (Divalproex Dr 250 Mg Tab) 250 mg PO BID [facility] Last Admin: 12/14/21 21:45 Dose: 250 mg Docusate Sodium (Docusate Sodium 100 Mg Cap) 100 mg PO BID [facility] Last Admin: 12/14/21 21:45 Dose: 100 mg Escitalopram Oxalate (Escitalopram 10 Mg Tab) 20 mg PO QDAY [facility] Last Admin: 12/14/21 10:00 Dose: 20 mg Folic Acid (Folic Acid 1 Mg Tab) 1 mg PO QDAY [facility] Last Admin: 12/14/21 10:00 Dose: 1 mg Lorazepam (Lorazepam 2 Mg/Ml Vial) 2 mg IM Q4H PRN PRN Reason: AGITATION Magnesium Hydroxide (Magnesium Hydroxide (Mom) Oral Liqd Udc) 30 ml PO Q4H PRN PRN Reason: Constipation Last Admin: 12/14/21 11:39 Dose: 30 ml Multivitamins (Multivitamins ,Therapeutic Tab) 1 each PO QDAY [facility] Last Admin: 12/14/21 10:00 Dose: 1 each Ondansetron HCl (Ondansetron 4 Mg Odt Tab) 4 mg PO Q8H PRN PRN Reason: Nausea And Vomiting Last Admin: 12/13/21 10:16 Dose: 4 mg Trazodone HCl (Trazodone 100 Mg Tab) 100 mg PO QHS [facility] Last Admin: 12/14/21 21:45 Dose: 100 mg Results - Results Labs/Vitals: Laboratory Last Values WBC 4.3 K/mm3 (4.5-11.0) L 12/11/21 09:26 RBC 3.67 M/mm3 (3.65-5.03) 12/11/21 09:26 Hgb 12.2 gm/dl (11.8-15.2) 12/11/21 09:26 Hct 37.5 % (35.5-45.6) 12/11/21 09:26 MCV 102 fl (84-94) H 12/11/21 09:26 MCH 33 pg (28-32) H 12/11/21 09:26 MCHC 33 % (32-34) 12/11/21 09:26 RDW 15.6 % (13.2-15.2) H 12/11/21 09:26 Plt Count 163 K/mm3 (140-440) 12/11/21 09:26 Lymph % (Auto) 22.4 % (13.4-35.0) 12/11/21 09:26 [place] % (Auto) 11.0 % (0.0-7.3) H 12/11/21 09:26 Eos % (Auto) 1.5 % (0.0-4.3) 12/11/21 09:26 Baso % (Auto) 0.4 % (0.0-1.8) 12/11/21 09:26 Lymph # (Auto) 1.0 K/mm3 (1.2-5.4) L 12/11/21 09:26 [place] # (Auto) 0.5 K/mm3 (0.0-0.8) 12/11/21 09:26 Eos # (Auto) 0.1 K/mm3 (0.0-0.4) 12/11/21 09:26 Baso # (Auto) 0.0 K/mm3 (0.0-0.1) 12/11/21 09:26 Seg Neutrophils % 64.7 % (40.0-70.0) 12/11/21 09: Seg Neutrophils # 2.8 K/mm3 (1.8-7.7) 12/11/21 09:26 Sodium 142 mmol/L (137-145) 12/11/21 09:26 Potassium 4.6 mmol/L (3.6-5.0) 12/11/21 09:26 Chloride 103.9 mmol/L (98-107) 12/11/21 09:26 Carbon Dioxide 33 mmol/L (22-30) H 12/11/21 09:26 Anion Gap 10 mmol/L 12/11/21 09:26 BUN 21 mg/dL (9-20) H 12/11/21 09:26 Creatinine 1.1 mg/dL (0.8-1.3) 12/11/21 09:26 Estimated GFR > 60 ml/min 12/11/21 09:26 BUN/Creatinine Ratio 19 % 12/11/21 09:26 Glucose 62 mg/dL (75-100) L 12/11/21 09:26 Hemoglobin A1c 5.2 % (4-6) 12/11/21 09:26 Calcium 9.3 mg/dL (8.4-10.2) 12/11/21 09:26 Total Bilirubin 0.30 mg/dL (0.1-1.2) 12/11/21 09:26 AST 22 units/L (5-40) 12/11/21 09:26 ALT 15 units/L (7-56) 12/11/21 09:26 Alkaline Phosphatase 63 units/L (35-129) 12/11/21 09:26 Total Protein 6.1 g/dL (6.3-8.2) L 12/11/21 09:26 Albumin 4.1 g/dL (3.9-5) 12/11/21 09:26 Albumin/Globulin Ratio 2.1 % 12/11/21 09:26 Triglycerides 100 mg/dL (2-149) 12/11/21 09:26 Cholesterol 185 mg/dL (50-199) 12/11/21 09:26 LDL Cholesterol Direct 75 mg/dL (50-130) 12/11/21 09:26 HDL Cholesterol 102 mg/dL (40-59) H 12/11/21 09:26 Cholesterol/HDL Ratio 1.81 % 12/11/21 09:26 TSH 1.130 mlU/mL (0.270-4.200) 12/11/21 09:26 Last Vital Signs Temp 97.5 F L 12/15/21 08:06 Pulse 62 12/15/21 08:06 Resp 18 12/15/21 08:06 BP 114/51 12/15/21 08:06 Pulse Ox 96 12/15/21 08:06
[2021-12-15] MEDS: ESCITALOPRAM 10 MG TAB PO SCH (09:28)
[2021-12-15] MEDS: DIVALPROEX DR 250 MG TAB PO SCH ×3 (09:28→20:31)
[2021-12-15] MEDS: MULTIVITAMINS ,THERAPEUTIC TAB PO SCH (09:29)
[2021-12-15] MEDS: FOLIC ACID 1 MG TAB PO SCH (09:29)
[2021-12-15] MEDS: DOCUSATE SODIUM 100 MG CAP PO SCH ×2 (09:29→21:44)
[2021-12-15] MEDS: AMOXICILLIN/K CLAV 875/125MG TAB PO SCH ×2 (09:29→21:44)
--- NOTE | 2021-12-15 10:56 | Progress Note ---
Assessment and Plan - Patient Problems (1) Major depression Current Visit: Yes Status: Acute Plan to address problem: Continue medical management, currently behavior therapy. Supportive care. (2) Vascular dementia with behavior disturbance Current Visit: Yes Status: Acute Plan to address problem: Verbal prompting, verbal redirection, benzodiazepine therapy as clinically indicated. (3) Cerebral atherosclerosis Current Visit: Yes Status: Acute Plan to address problem: Risk factor reduction, antiplatelet therapy as clinically indicated. (4) Advance care planning Current Visit: Yes Status: Acute Plan to address problem: Disease education done, care plan discussed, diagnoses discussed, prognosis discussed, +30 minutes. (5) Preventative health care Current Visit: Yes Status: Acute Plan to address problem: Patient counseled regarding home safety precautions, outpatient follow-up with primary care physician for all age and risk factor proper screening test. +30 minutes. History Interval history: 76 YO Male with Vascular Dementia with Behavioral Disturbance, Cerebral Atherosclerosis, MDD, PSA admitted to [facility] for psychiatric stabilization. Consult placed by Dr. Lundy for medical management. Patient seen and evaluated in the recreation room. Patient appears to be at baseline level of cognition and function. Hospitalist Physical - Constitutional Vitals: Temp Pulse Resp BP Pulse Ox 97.5 F L 62 18 114/51 96 12/15/21 08:06 12/15/21 08:06 12/15/21 08:06 12/15/21 08:06 12/15/21 08:06 General appearance: Present: no acute distress, well-nourished - EENT Eyes: Present: PERRL ENT: hearing decreased - Neck Neck: Present: supple - Respiratory Respiratory effort: normal Respiratory: bilateral: CTA - Cardiovascular Rhythm: regular Heart Sounds: Present: S1 & S2 - Extremities Extremities: no ischemia Peripheral Pulses: within normal limits - Abdominal General gastrointestinal: soft, non-tender, non-distended - Integumentary Integumentary: Present: clear, dry - Psychiatric Psychiatric: cooperative - Neurologic Neurologic: CNII-XII intact Results - Labs CBC & Chem 7: 12/11/21 09:26 12/11/21 09:26 Labs: Laboratory Last Values WBC 4.3 K/mm3 (4.5-11.0) L 12/11/21 09:26 RBC 3.67 M/mm3 (3.65-5.03) 12/11/21 09:26 Hgb 12.2 gm/dl (11.8-15.2) 12/11/21 09:26 Hct 37.5 % (35.5-45.6) 12/11/21 09:26 MCV 102 fl (84-94) H 12/11/21 09:26 MCH 33 pg (28-32) H 12/11/21 09:26 MCHC 33 % (32-34) 12/11/21 09: RDW 15.6 % (13.2-15.2) H 12/11/21 09:26 Plt Count 163 K/mm3 (140-440) 12/11/21 09:26 Lymph % (Auto) 22.4 % (13.4-35.0) 12/11/21 09:26 [place] % (Auto) 11.0 % (0.0-7.3) H 12/11/21 09:26 Eos % (Auto) 1.5 % (0.0-4.3) 12/11/21 09: Baso % (Auto) 0.4 % (0.0-1.8) 12/11/21 09:26 Lymph # (Auto) 1.0 K/mm3 (1.2-5.4) L 12/11/21 09:26 [place] # (Auto) 0.5 K/mm3 (0.0-0.8) 12/11/21 09:26 Eos # (Auto) 0.1 K/mm3 (0.0-0.4) 12/11/21 09:26 Baso # (Auto) 0.0 K/mm3 (0.0-0.1) 12/11/21 09:26 Seg Neutrophils % 64.7 % (40.0-70.0) 12/11/21 09: Seg Neutrophils # 2.8 K/mm3 (1.8-7.7) 12/11/21 09:26 Sodium 142 mmol/L (137-145) 12/11/21 09:26 Potassium 4.6 mmol/L (3.6-5.0) 12/11/21 09:26 Chloride 103.9 mmol/L (98-107) 12/11/21 09:26 Carbon Dioxide 33 mmol/L (22-30) H 12/11/21 09:26 Anion Gap 10 mmol/L 12/11/21 09:26 BUN 21 mg/dL (9-20) H 12/11/21 09:26 Creatinine 1.1 mg/dL (0.8-1.3) 12/11/21 09:26 Estimated GFR > 60 ml/min 12/11/21 09:26 BUN/Creatinine Ratio 19 % 12/11/21 09:26 Glucose 62 mg/dL (75-100) L 12/11/21 09:26 Hemoglobin A1c 5.2 % (4-6) 12/11/21 09:26 Calcium 9.3 mg/dL (8.4-10.2) 12/11/21 09:26 Total Bilirubin 0.30 mg/dL (0.1-1.2) 12/11/21 09:26 AST 22 units/L (5-40) 12/11/21 09:26 ALT 15 units/L (7-56) 12/11/21 09:26 Alkaline Phosphatase 63 units/L (35-129) 12/11/21 09:26 Total Protein 6.1 g/dL (6.3-8.2) L 12/11/21 09:26 Albumin 4.1 g/dL (3.9-5) 12/11/21 09:26 Albumin/Globulin Ratio 2.1 % 12/11/21 09:26 Triglycerides 100 mg/dL (2-149) 12/11/21 09:26 Cholesterol 185 mg/dL (50-199) 12/11/21 09:26 LDL Cholesterol Direct 75 mg/dL (50-130) 12/11/21 09:26 HDL Cholesterol 102 mg/dL (40-59) H 12/11/21 09:26 Cholesterol/HDL Ratio 1.81 % 12/11/21 09:26 TSH 1.130 mlU/mL (0.270-4.200) 12/11/21 09:26 Connell/IV: Voiding Method Toilet Active Medications - Current Medications Current Medications: Generic Name Dose Route Start Last Admin Trade Name Freq PRN Reason Stop Dose Admin Amoxicillin/Clavulanate Potassium 1 each 12/11/21 14:00 12/15/21 09:29 Amoxicillin/K Clav 875/125mg Tab PO 12/18/21 13:59 1 each Q12HR [facility] Administration Divalproex Sodium 250 mg 12/15/21 09:00 12/15/21 09:[address] 250 Mg Tab PO 250 mg TID [facility] Administration Docusate Sodium 100 mg 12/14/21 11:00 12/15/21 09:29 Docusate Sodium 100 Mg Cap PO 100 mg BID [facility] Administration Escitalopram Oxalate 20 mg 12/13/21 10:00 12/15/21 09:28 Escitalopram 10 Mg Tab PO 20 mg QDAY [facility] Administration Folic Acid 1 mg 12/11/21 12:00 12/15/21 09:29 Folic Acid 1 Mg Tab PO 1 mg QDAY [facility] Administration Lorazepam 2 mg 12/13/21 20:07 Lorazepam 2 Mg/Ml Vial IM Q4H PRN AGITATION Magnesium Hydroxide 30 ml 12/14/21 11:00 12/14/21 11:39 Magnesium Hydroxide (Mom) Oral Liqd Udc PO 30 ml Q4H PRN Administration Constipation Multivitamins 1 each 12/11/21 13:00 12/15/21 09:29 Multivitamins ,Therapeutic Tab PO 1 each QDAY [facility] Administration Ondansetron HCl 4 mg 12/13/21 08:44 12/13/21 10:16 Ondansetron 4 Mg Odt Tab PO 4 mg Q8H PRN Administration Nausea And Vomiting Trazodone HCl 100 mg 12/12/21 22:00 12/14/21 21:45 Trazodone 100 Mg Tab PO 100 mg QHS [facility] Administration
[2021-12-15] MEDS: traZODone 100 MG TAB PO SCH (21:44)
--- NOTE | 2021-12-16 09:00 | History and Physical Report ---
GP History & Physical - History of Present Illness Date of admission: 12/15/21 Date of Examination: 12/16/21 Reason for Admission: Danger to self, Failure of Outpatient Treatment, Severe anxiety/depression Legal Status: Voluntary Reaction to Hospitalization: Accepting Medications and Allergies Allergies Allergy/AdvReac Type Severity Reaction Status Date / Time No Known Allergies Allergy Verified 12/11/21 02:05 Home Medications Medication Instructions Recorded Confirmed Last Taken Type Amoxicillin [Amoxicillin TAB] 875 mg PO BID 12/11/21 12/11/21 Unknown History Active Meds: Active Medications Amoxicillin/Clavulanate Potassium (Amoxicillin/K Clav 875/125mg Tab) 1 each PO Q12HR [facility] Stop: 12/18/21 13:59 Last Admin: 12/15/21 21:44 Dose: 1 each Divalproex Sodium (Divalproex Dr 250 Mg Tab) 250 mg PO TID [facility] Last Admin: 12/15/21 20:31 Dose: 250 mg Docusate Sodium (Docusate Sodium 100 Mg Cap) 100 mg PO BID [facility] Last Admin: 12/15/21 21:44 Dose: 100 mg Escitalopram Oxalate (Escitalopram 10 Mg Tab) 20 mg PO QDAY [facility] Last Admin: 12/15/21 09:28 Dose: 20 mg Folic Acid (Folic Acid 1 Mg Tab) 1 mg PO QDAY [facility] Last Admin: 12/15/21 09:29 Dose: 1 mg Lorazepam (Lorazepam 2 Mg/Ml Vial) 2 mg IM Q4H PRN PRN Reason: AGITATION Magnesium Hydroxide (Magnesium Hydroxide (Mom) Oral Liqd Udc) 30 ml PO Q4H PRN PRN Reason: Constipation Last Admin: 12/14/21 11:39 Dose: 30 ml Multivitamins (Multivitamins ,Therapeutic Tab) 1 each PO QDAY [facility] Last Admin: 12/15/21 09:29 Dose: 1 each Ondansetron HCl (Ondansetron 4 Mg Odt Tab) 4 mg PO Q8H PRN PRN Reason: Nausea And Vomiting Last Admin: 12/13/21 10:16 Dose: 4 mg Trazodone HCl (Trazodone 100 Mg Tab) 100 mg PO QHS [facility] Last Admin: 12/15/21 21:44 Dose: 100 mg Results - Results Labs/Vitals: Laboratory Last Values WBC 4.3 K/mm3 (4.5-11.0) L 12/11/21 09:26 RBC 3.67 M/mm3 (3.65-5.03) 12/11/21 09:26 Hgb 12.2 gm/dl (11.8-15.2) 12/11/21 09:26 Hct 37.5 % (35.5-45.6) 12/11/21 09:26 MCV 102 fl (84-94) H 12/11/21 09:26 MCH 33 pg (28-32) H 12/11/21 09:26 MCHC 33 % (32-34) 12/11/21 09:26 RDW 15.6 % (13.2-15.2) H 12/11/21 09:26 Plt Count 163 K/mm3 (140-440) 12/11/21 09:26 Lymph % (Auto) 22.4 % (13.4-35.0) 12/11/21 09:26 [place] % (Auto) 11.0 % (0.0-7.3) H 12/11/21 09:26 Eos % (Auto) 1.5 % (0.0-4.3) 12/11/21 09:26 Baso % (Auto) 0.4 % (0.0-1.8) 12/11/21 09:26 Lymph # (Auto) 1.0 K/mm3 (1.2-5.4) L 12/11/21 09:26 [place] # (Auto) 0.5 K/mm3 (0.0-0.8) 12/11/21 09: Eos # (Auto) 0.1 K/mm3 (0.0-0.4) 12/11/21 09:26 Baso # (Auto) 0.0 K/mm3 (0.0-0.1) 12/11/21 09:26 Seg Neutrophils % 64.7 % (40.0-70.0) 12/11/21 09: Seg Neutrophils # 2.8 K/mm3 (1.8-7.7) 12/11/21 09:26 Sodium 142 mmol/L (137-145) 12/11/21 09:26 Potassium 4.6 mmol/L (3.6-5.0) 12/11/21 09:26 Chloride 103.9 mmol/L (98-107) 12/11/21 09:26 Carbon Dioxide 33 mmol/L (22-30) H 12/11/21 09:26 Anion Gap 10 mmol/L 12/11/21 09:26 BUN 21 mg/dL (9-20) H 12/11/21 09:26 Creatinine 1.1 mg/dL (0.8-1.3) 12/11/21 09:26 Estimated GFR > 60 ml/min 12/11/21 09:26 BUN/Creatinine Ratio 19 % 12/11/21 09:26 Glucose 62 mg/dL (75-100) L 12/11/21 09:26 Hemoglobin A1c 5.2 % (4-6) 12/11/21 09:26 Calcium 9.3 mg/dL (8.4-10.2) 12/11/21 09:26 Total Bilirubin 0.30 mg/dL (0.1-1.2) 12/11/21 09:26 AST 22 units/L (5-40) 12/11/21 09:26 ALT 15 units/L (7-56) 12/11/21 09:26 Alkaline Phosphatase 63 units/L (35-129) 12/11/21 09:26 Total Protein 6.1 g/dL (6.3-8.2) L 12/11/21 09:26 Albumin 4.1 g/dL (3.9-5) 12/11/21 09:26 Albumin/Globulin Ratio 2.1 % 12/11/21 09:26 Triglycerides 100 mg/dL (2-149) 12/11/21 09:26 Cholesterol 185 mg/dL (50-199) 12/11/21 09:26 LDL Cholesterol Direct 75 mg/dL (50-130) 12/11/21 09:26 HDL Cholesterol 102 mg/dL (40-59) H 12/11/21 09:26 Cholesterol/HDL Ratio 1.81 % 12/11/21 09:26 TSH 1.130 mlU/mL (0.270-4.200) 12/11/21 09:26 Last Vital Signs Temp 98.6 F 12/15/21 19:29 Pulse 62 12/15/21 08:06 Resp 18 12/15/21 19:29 BP 120/48 12/15/21 19:29 Pulse Ox 96 12/15/21 08:06 Physical Examination - Constitutional Vitals: Vital Signs Temp Pulse Resp BP Pulse Ox 98.6 F 62 18 120/48 96 12/15/21 19:29 12/15/21 08:06 12/15/21 19:29 12/15/21 19:29 12/15/21 08:06 Temperature -Last 24 Hours Temperature 98.6 F Mental Status Exam - Vital signs Last Vital Signs Temp 98.6 F 12/15/21 19:29 Pulse 62 12/15/21 08:06 Resp 18 12/15/21 19:29 BP 120/48 12/15/21 19:29 Pulse Ox 96 12/15/21 08:06 Physician Certification - Certification Statement Physician Certification Statement: This is an acknowledgement statement that SHAHNAZ GONZALES is a 76 year old M who requires inpatient psychiatric admission for treatment which could reasonably be expected to improve the patient's condition for Estimated period of time patient will need to remain in the hospital: [ ] Plan for post-hospital care: [ ]
--- NOTE | 2021-12-16 09:05 | Progress Note ---
Subjective Date of service: 12/16/21 Principal diagnosis: MDD Subjective Comment: The patient was seen today. He says he's a little better but still depressed. He still endorses suicidal thoughts, but has no plan. He denies hallucinations of any kind. REVIEW OF SYSTEMS Constitutional: Negative for weight loss ENT: Negative for stridor Respiratory: Negative for cough or hemoptysis All other systems reviewed and are negative MENTAL STATUS EXAMINATION General Appearance and Behavior: Age appropriate, wearing appropriate clothes, cooperative, polite with questioning, good eye contact Cooperation: cooperative Psychomotor Behavior: Psychomotor normal Mood: Depressed Affect and affective range: congruent with stated affect Thought Process: goal directed Thought Content: None Speech: Normal volume, Regular rate and rhythm Suicidal Ideation: Yes Homicidal Ideation: Denies Hallucination: Denies Delusions: None elicited Impulse Control: Limited Insight and Judgment: Limited Memory: Intact Attention: attentive Orientation: Alert and oriented Diagnoses: Major Depressive Disorder Cocaine Use Disorder Alcohol Dependence Treatment Plan Patient admitted for inpatient psychiatric evaluation, medication adjustment and close monitoring The patient's behavior, mood, sleep and appetite will be closely monitored. Patient enrolled in individual and group therapeutic sessions and encouraged to attend. Patient provided with a safe and structured environment. Patient's physical health needs will be addressed by the Hospitalist. Hospitalist Consulted Labs including CBC, CMP, Lipid profile and Hemoglobin A1C levels ordered for baseline reference Social Assessment will be completed and the Risk Analyst will work with patient and family to ensure a suitable and safe disposition Medication adjustment will be made as clinically indicated Increase Depakote DR 500mg po BID Usual Wellness Bah[place]/Preservation The patient agreed on the treatment plan, understood the risk, benefit, alternative treatment, potential consequence of no treatment, and gave informed consent. Estimated days: 7 Post hospital care: primary care provider, psychiatric provider Case staffed with Dr. Briggs Medications and Allergies Allergies Allergy/AdvReac Type Severity Reaction Status Date / Time No Known Allergies Allergy Verified 12/11/21 02:05 Home Medications Medication Instructions Recorded Confirmed Last Taken Type Amoxicillin [Amoxicillin TAB] 875 mg PO BID 12/11/21 12/11/21 Unknown History Active Meds: Active Medications Amoxicillin/Clavulanate Potassium (Amoxicillin/K Clav 875/125mg Tab) 1 each PO Q12HR [facility] Stop: 12/18/21 13:59 Last Admin: 12/15/21 21:44 Dose: 1 each Divalproex Sodium (Divalproex Dr 250 Mg Tab) 250 mg PO TID [facility] Last Admin: 12/15/21 20:31 Dose: 250 mg Docusate Sodium (Docusate Sodium 100 Mg Cap) 100 mg PO BID [facility] Last Admin: 12/15/21 21:44 Dose: 100 mg Escitalopram Oxalate (Escitalopram 10 Mg Tab) 20 mg PO QDAY [facility] Last Admin: 12/15/21 09:28 Dose: 20 mg Folic Acid (Folic Acid 1 Mg Tab) 1 mg PO QDAY [facility] Last Admin: 12/15/21 09:29 Dose: 1 mg Lorazepam (Lorazepam 2 Mg/Ml Vial) 2 mg IM Q4H PRN PRN Reason: AGITATION Magnesium Hydroxide (Magnesium Hydroxide (Mom) Oral Liqd Udc) 30 ml PO Q4H PRN PRN Reason: Constipation Last Admin: 12/14/21 11:39 Dose: 30 ml Multivitamins (Multivitamins ,Therapeutic Tab) 1 each PO QDAY [facility] Last Admin: 12/15/21 09:29 Dose: 1 each Ondansetron HCl (Ondansetron 4 Mg Odt Tab) 4 mg PO Q8H PRN PRN Reason: Nausea And Vomiting Last Admin: 12/13/21 10:16 Dose: 4 mg Trazodone HCl (Trazodone 100 Mg Tab) 100 mg PO QHS [facility] Last Admin: 12/15/21 21:44 Dose: 100 mg Results - Results Labs/Vitals: Laboratory Last Values WBC 4.3 K/mm3 (4.5-11.0) L 12/11/21 09:26 RBC 3.67 M/mm3 (3.65-5.03) 12/11/21 09:26 Hgb 12.2 gm/dl (11.8-15.2) 12/11/21 09:26 Hct 37.5 % (35.5-45.6) 12/11/21 09:26 MCV 102 fl (84-94) H 12/11/21 09:26 MCH 33 pg (28-32) H 12/11/21 09:26 MCHC 33 % (32-34) 12/11/21 09:26 RDW 15.6 % (13.2-15.2) H 12/11/21 09:26 Plt Count 163 K/mm3 (140-440) 12/11/21 09:26 Lymph % (Auto) 22.4 % (13.4-35.0) 12/11/21 09:26 [place] % (Auto) 11.0 % (0.0-7.3) H 12/11/21 09:26 Eos % (Auto) 1.5 % (0.0-4.3) 12/11/21 09:26 Baso % (Auto) 0.4 % (0.0-1.8) 12/11/21 09:26 Lymph # (Auto) 1.0 K/mm3 (1.2-5.4) L 12/11/21 09:26 [place] # (Auto) 0.5 K/mm3 (0.0-0.8) 12/11/21 09:26 Eos # (Auto) 0.1 K/mm3 (0.0-0.4) 12/11/21 09:26 Baso # (Auto) 0.0 K/mm3 (0.0-0.1) 12/11/21 09:26 Seg Neutrophils % 64.7 % (40.0-70.0) 12/11/21 09:26 Seg Neutrophils # 2.8 K/mm3 (1.8-7.7) 12/11/21 09:26 Sodium 142 mmol/L (137-145) 12/11/21 09:26 Potassium 4.6 mmol/L (3.6-5.0) 12/11/21 09:26 Chloride 103.9 mmol/L (98-107) 12/11/21 09:26 Carbon Dioxide 33 mmol/L (22-30) H 12/11/21 09:26 Anion Gap 10 mmol/L 12/11/21 09:26 BUN 21 mg/dL (9-20) H 12/11/21 09:26 Creatinine 1.1 mg/dL (0.8-1.3) 12/11/21 09:26 Estimated GFR > 60 ml/min 12/11/21 09:26 BUN/Creatinine Ratio 19 % 12/11/21 09:26 Glucose 62 mg/dL (75-100) L 12/11/21 09:26 Hemoglobin A1c 5.2 % (4-6) 12/11/21 09:26 Calcium 9.3 mg/dL (8.4-10.2) 09/09/22 09:26 Total Bilirubin 0.30 mg/dL (0.1-1.2) 12/11/21 09:26 AST 22 units/L (5-40) 12/11/21 09:26 ALT 15 units/L (7-56) 12/11/21 09:26 Alkaline Phosphatase 63 units/L (35-129) 12/11/21 09:26 Total Protein 6.1 g/dL (6.3-8.2) L 12/11/21 09:26 Albumin 4.1 g/dL (3.9-5) 12/11/21 09:26 Albumin/Globulin Ratio 2.1 % 12/11/21 09:26 Triglycerides 100 mg/dL (2-149) 12/11/21 09:26 Cholesterol 185 mg/dL (50-199) 12/11/21 09:26 LDL Cholesterol Direct 75 mg/dL (50-130) 12/11/21 09:26 HDL Cholesterol 102 mg/dL (40-59) H 12/11/21 09:26 Cholesterol/HDL Ratio 1.81 % 12/11/21 09:26 TSH 1.130 mlU/mL (0.270-4.200) 12/11/21 09:26 Last Vital Signs Temp 98.6 F 12/15/21 19:29 Pulse 62 12/15/21 08:06 Resp 18 12/15/21 19:29 BP 120/48 12/15/21 19:29 Pulse Ox 96 12/15/21 08:06
[2021-12-16] MEDS: AMOXICILLIN/K CLAV 875/125MG TAB PO SCH ×2 (10:45→21:39)
[2021-12-16] MEDS: ESCITALOPRAM 10 MG TAB PO SCH (10:45)
[2021-12-16] MEDS: MULTIVITAMINS ,THERAPEUTIC TAB PO SCH (10:45)
[2021-12-16] MEDS: DOCUSATE SODIUM 100 MG CAP PO SCH ×2 (10:45→21:30)
[2021-12-16] MEDS: DIVALPROEX DR 500 MG TAB PO SCH ×2 (10:45→21:30)
[2021-12-16] MEDS: FOLIC ACID 1 MG TAB PO SCH (10:45)
[2021-12-16] MEDS: traZODone 100 MG TAB PO SCH (21:30)
[2021-12-17] MEDS: FOLIC ACID 1 MG TAB PO SCH (09:05)
[2021-12-17] MEDS: DIVALPROEX DR 500 MG TAB PO SCH ×2 (09:05→21:31)
[2021-12-17] MEDS: DOCUSATE SODIUM 100 MG CAP PO SCH ×2 (09:05→21:31)
[2021-12-17] MEDS: ESCITALOPRAM 10 MG TAB PO SCH (09:05)
[2021-12-17] MEDS: MULTIVITAMINS ,THERAPEUTIC TAB PO SCH (09:05)
[2021-12-17] MEDS: AMOXICILLIN/K CLAV 875/125MG TAB PO SCH ×2 (09:05→21:31)
--- NOTE | 2021-12-17 10:08 | Progress Note ---
Subjective Date of service: 12/17/21 Principal diagnosis: MDD Subjective Comment: The patient was seen today. The patient says he's doing better, but still endorses SI "on and off." He denies a plan. He says he didn't sleep well. He denies hallucinations. REVIEW OF SYSTEMS Constitutional: Negative for weight loss ENT: Negative for stridor Respiratory: Negative for cough or hemoptysis All other systems reviewed and are negative MENTAL STATUS EXAMINATION General Appearance and Behavior: Age appropriate, wearing appropriate clothes, cooperative, polite with questioning, good eye contact Cooperation: cooperative Psychomotor Behavior: Psychomotor normal Mood: Depressed Affect and affective range: congruent with stated affect Thought Process: goal directed Thought Content: None Speech: Normal volume, Regular rate and rhythm Suicidal Ideation: Yes Homicidal Ideation: Denies Hallucination: Denies Delusions: None elicited Impulse Control: Limited Insight and Judgment: Limited Memory: Intact Attention: attentive Orientation: Alert and oriented Diagnoses: Major Depressive Disorder Cocaine Use Disorder Alcohol Dependence Treatment Plan Patient admitted for inpatient psychiatric evaluation, medication adjustment and close monitoring The patient's behavior, mood, sleep and appetite will be closely monitored. Patient enrolled in individual and group therapeutic sessions and encouraged to attend. Patient provided with a safe and structured environment. Patient's physical health needs will be addressed by the Hospitalist. Hospitalist Consulted Labs including CBC, CMP, Lipid profile and Hemoglobin A1C levels ordered for baseline reference Valproic level Social Assessment will be completed and the Manager Field Services will work with patient and family to ensure a suitable and safe disposition Medication adjustment will be made as clinically indicated Depakote DR 500mg po BID Increase Trazodone 150mg po qhs [facility] The patient agreed on the treatment plan, understood the risk, benefit, alternative treatment, potential consequence of no treatment, and gave informed consent. Estimated days: 7 Post hospital care: primary care provider, psychiatric provider Case staffed with Dr. Briggs Medications and Allergies Allergies Allergy/AdvReac Type Severity Reaction Status Date / Time No Known Allergies Allergy Verified 12/11/21 02:05 Home Medications Medication Instructions Recorded Confirmed Last Taken Type Amoxicillin [Amoxicillin TAB] 875 mg PO BID 12/11/21 12/11/21 Unknown History Active Meds: Active Medications Amoxicillin/Clavulanate Potassium (Amoxicillin/K Clav 875/125mg Tab) 1 each PO Q12HR RUBIN Stop: 12/18/21 13:59 Last Admin: 12/17/21 09:05 Dose: 1 each Divalproex Sodium (Divalproex Dr 500 Mg Tab) 500 mg PO BID [facility] Last Admin: 12/17/21 09:05 Dose: 500 mg Docusate Sodium (Docusate Sodium 100 Mg Cap) 100 mg PO BID [facility] Last Admin: 12/17/21 09:05 Dose: 100 mg Escitalopram Oxalate (Escitalopram 10 Mg Tab) 20 mg PO QDAY [facility] Last Admin: 12/17/21 09:05 Dose: 20 mg Folic Acid (Folic Acid 1 Mg Tab) 1 mg PO QDAY [facility] Last Admin: 12/17/21 09:05 Dose: 1 mg Lorazepam (Lorazepam 2 Mg/Ml Vial) 2 mg IM Q4H PRN PRN Reason: AGITATION Magnesium Hydroxide (Magnesium Hydroxide (Mom) Oral Liqd Udc) 30 ml PO Q4H PRN PRN Reason: Constipation Last Admin: 12/14/21 11:39 Dose: 30 ml Multivitamins (Multivitamins ,Therapeutic Tab) 1 each PO QDAY [facility] Last Admin: 12/17/21 09:05 Dose: 1 each Ondansetron HCl (Ondansetron 4 Mg Odt Tab) 4 mg PO Q8H PRN PRN Reason: Nausea And Vomiting Last Admin: 12/13/21 10:16 Dose: 4 mg Trazodone HCl (Trazodone 100 Mg Tab) 100 mg PO QHS [facility] Last Admin: 12/16/21 21:30 Dose: 100 mg Results - Results Labs/Vitals: Laboratory Last Values WBC 4.3 K/mm3 (4.5-11.0) L 12/11/21 09:26 RBC 3.67 M/mm3 (3.65-5.03) 12/11/21 09:26 Hgb 12.2 gm/dl (11.8-15.2) 12/11/21 09:26 Hct 37.5 % (35.5-45.6) 12/11/21 09:26 MCV 102 fl (84-94) H 12/11/21 09:26 MCH 33 pg (28-32) H 12/11/21 09:26 MCHC 33 % (32-34) 12/11/21 09:26 RDW 15.6 % (13.2-15.2) H 12/11/21 09:26 Plt Count 163 K/mm3 (140-440) 12/11/21 09:26 Lymph % (Auto) 22.4 % (13.4-35.0) 12/11/21 09:26 [place] % (Auto) 11.0 % (0.0-7.3) H 12/11/21 09:26 Eos % (Auto) 1.5 % (0.0-4.3) 12/11/21 09:26 Baso % (Auto) 0.4 % (0.0-1.8) 12/11/21 09:26 Lymph # (Auto) 1.0 K/mm3 (1.2-5.4) L 12/11/21 09:26 [place] # (Auto) 0.5 K/mm3 (0.0-0.8) 12/11/21 09:26 Eos # (Auto) 0.1 K/mm3 (0.0-0.4) 12/11/21 09:26 Baso # (Auto) 0.0 K/mm3 (0.0-0.1) 12/11/21 09:26 Seg Neutrophils % 64.7 % (40.0-70.0) 12/11/21 09:26 Seg Neutrophils # 2.8 K/mm3 (1.8-7.7) 12/11/21 09:26 Sodium 142 mmol/L (137-145) 12/11/21 09:26 Potassium 4.6 mmol/L (3.6-5.0) 12/11/21 09:26 Chloride 103.9 mmol/L (98-107) 12/11/21 09:26 Carbon Dioxide 33 mmol/L (22-30) H 12/11/21 09:26 Anion Gap 10 mmol/L 12/11/21 09:26 BUN 21 mg/dL (9-20) H 12/11/21 09:26 Creatinine 1.1 mg/dL (0.8-1.3) 12/11/21 09:26 Estimated GFR > 60 ml/min 12/11/21 09:26 BUN/Creatinine Ratio 19 % 12/11/21 09:26 Glucose 62 mg/dL (75-100) L 12/11/21 09:26 Hemoglobin A1c 5.2 % (4-6) 12/11/21 09:26 Calcium 9.3 mg/dL (8.4-10.2) 12/11/21 09:26 Total Bilirubin 0.30 mg/dL (0.1-1.2) 12/11/21 09:26 AST 22 units/L (5-40) 12/11/21 09:26 ALT 15 units/L (7-56) 12/11/21 09:26 Alkaline Phosphatase 63 units/L (35-129) 12/11/21 09:26 Total Protein 6.1 g/dL (6.3-8.2) L 12/11/21 09:26 Albumin 4.1 g/dL (3.9-5) 12/11/21 09:26 Albumin/Globulin Ratio 2.1 % 12/11/21 09:26 Triglycerides 100 mg/dL (2-149) 12/11/21 09:26 Cholesterol 185 mg/dL (50-199) 12/11/21 09:26 LDL Cholesterol Direct 75 mg/dL (50-130) 12/11/21 09:26 HDL Cholesterol 102 mg/dL (40-59) H 12/11/21 09:26 Cholesterol/HDL Ratio 1.81 % 12/11/21 09:26 TSH 1.130 mlU/mL (0.270-4.200) 12/11/21 09:26 Last Vital Signs Temp 97.9 F 12/17/21 06:23 Pulse 62 12/15/21 08:06 Resp 18 12/17/21 06:23 BP 120/54 12/17/21 06:23 Pulse Ox 96 12/15/21 08:06
[2021-12-17] MEDS: traZODone 100 MG TAB PO SCH (21:38)
[2021-12-17] MEDS ORDERED: traZODone 50 MG TAB PO SCH (22:00)
[2021-12-18] MEDS: MULTIVITAMINS ,THERAPEUTIC TAB PO SCH (10:25)
[2021-12-18] MEDS: ESCITALOPRAM 10 MG TAB PO SCH (10:25)
[2021-12-18] MEDS: DOCUSATE SODIUM 100 MG CAP PO SCH ×2 (10:25→21:16)
[2021-12-18] MEDS: FOLIC ACID 1 MG TAB PO SCH (10:26)
[2021-12-18] MEDS: DIVALPROEX DR 500 MG TAB PO SCH ×2 (10:26→21:16)
[2021-12-18] MEDS: AMOXICILLIN/K CLAV 875/125MG TAB PO SCH (10:26)
[2021-12-18] MEDS: hydrOXYzine PAMOATE 25 MG CAP PO PRN ×2 (10:31→20:58)
[2021-12-18] MEDS: traZODone 100 MG TAB PO SCH ×2 (21:16)
[2021-12-19] MEDS: DOCUSATE SODIUM 100 MG CAP PO SCH ×2 (09:11→21:03)
[2021-12-19] MEDS: ESCITALOPRAM 10 MG TAB PO SCH (09:11)
[2021-12-19] MEDS: DIVALPROEX DR 500 MG TAB PO SCH ×2 (09:11→21:03)
[2021-12-19] MEDS: FOLIC ACID 1 MG TAB PO SCH (09:11)
[2021-12-19] MEDS: MULTIVITAMINS ,THERAPEUTIC TAB PO SCH (09:11)
[2021-12-19] MEDS: traZODone 100 MG TAB PO SCH ×2 (21:04)
--- NOTE | 2021-12-19 21:40 | Progress Note ---
Subjective Date of service: 12/18/21 Principal diagnosis: MDD Subjective Comment: 12/18: The patient was seen today. Patient reports "lil less intense" depressed mood with intermittent suicidal ideation. Patient reports he's living a "miserable existence." Patient reports poor sleep and anxiety regarding placement "I'm really uptight about what's going to happen." Patient reports okay appetite. Patient denies HI or hallucinations. REVIEW OF SYSTEMS Constitutional: Negative for weight loss ENT: Negative for stridor Respiratory: Negative for cough or hemoptysis All other systems reviewed and are negative MENTAL STATUS EXAMINATION General Appearance and Behavior: Age appropriate, wearing appropriate clothes, cooperative, polite with questioning, good eye contact Cooperation: cooperative Psychomotor Behavior: Psychomotor normal Mood: Depressed Affect and affective range: congruent with stated affect Thought Process: goal directed Thought Content: None Speech: Normal volume, Regular rate and rhythm Suicidal Ideation: Yes Homicidal Ideation: Denies Hallucination: Denies Delusions: None elicited Impulse Control: Limited Insight and Judgment: Limited Memory: Intact Attention: attentive Orientation: Alert and oriented Diagnoses: Major Depressive Disorder Cocaine Use Disorder Alcohol Dependence Treatment Plan Patient admitted for inpatient psychiatric evaluation, medication adjustment and close monitoring The patient's behavior, mood, sleep and appetite will be closely monitored. Patient enrolled in individual and group therapeutic sessions and encouraged to attend. Patient provided with a safe and structured environment.Patient's physical health needs will be addressed by the Hospitalist. Hospitalist Consulted Labs including CBC, CMP, Lipid profile and Hemoglobin A1C levels ordered for baseline reference Social Assessment will be completed and the Group Controller will work with patient and family to ensure a suitable and safe disposition Medication adjustment will be made as clinically indicated Continue meds Depakote DR 500mg po BID Increase Trazodone 150mg po qhs [facility] The patient agreed on the treatment plan, understood the risk, benefit, alternative treatment, potential consequence of no treatment, and gave informed consent. Estimated days: 7 Post hospital care: primary care provider, psychiatric provider Case staffed with Dr. Briggs Objective - Criteria for Continued Treatment Criteria for Continued Treatment: Preventing Decomposition, Improving Level of Functioning, Reducing Isolative Behaviors - Symptoms/Impairments Symptoms/Impairments: depressed mood, anxiety, insomnia; self-isolating behaviors - Mental Status Mental Status: Alert - Objective Observation Participation Level: Full Medications and Allergies Allergies Allergy/AdvReac Type Severity Reaction Status Date / Time No Known Allergies Allergy Verified 12/11/21 02:05 Home Medications Medication Instructions Recorded Confirmed Last Taken Type Amoxicillin [Amoxicillin TAB] 875 mg PO BID 12/11/21 12/11/21 Unknown History Active Meds: Active Medications Divalproex Sodium (Divalproex Dr 500 Mg Tab) 500 mg PO BID [facility] Last Admin: 12/19/21 21:03 Dose: 500 mg Docusate Sodium (Docusate Sodium 100 Mg Cap) 100 mg PO BID [facility] Last Admin: 12/19/21 21:03 Dose: 100 mg Escitalopram Oxalate (Escitalopram 10 Mg Tab) 20 mg PO QDAY [facility] Last Admin: 12/19/21 09:11 Dose: 20 mg Folic Acid (Folic Acid 1 Mg Tab) 1 mg PO QDAY [facility] Last Admin: 12/19/21 09:11 Dose: 1 mg Hydroxyzine Pamoate (Hydroxyzine Pamoate 25 Mg Cap) 25 mg PO Q6H PRN PRN Reason: Anxiety Last Admin: 12/18/21 20:58 Dose: 25 mg Lorazepam (Lorazepam 2 Mg/Ml Vial) 2 mg IM Q4H PRN PRN Reason: AGITATION Magnesium Hydroxide (Magnesium Hydroxide (Mom) Oral Liqd Udc) 30 ml PO Q4H PRN PRN Reason: Constipation Last Admin: 12/14/21 11:39 Dose: 30 ml Multivitamins (Multivitamins ,Therapeutic Tab) 1 each PO QDAY [facility] Last Admin: 12/19/21 09:11 Dose: 1 each Ondansetron HCl (Ondansetron 4 Mg Odt Tab) 4 mg PO Q8H PRN PRN Reason: Nausea And Vomiting Last Admin: 12/13/21 10:16 Dose: 4 mg Trazodone HCl (Trazodone 100 Mg Tab) 100 mg PO QHS [facility] Last Admin: 12/19/21 21:04 Dose: 100 mg Trazodone HCl (Trazodone 100 Mg Tab) 50 mg PO QHS [facility] Last Admin: 12/19/21 21:04 Dose: 50 mg Results - Results Labs/Vitals: Laboratory Last Values WBC 4.3 K/mm3 (4.5-11.0) L 12/11/21 09:26 RBC 3.67 M/mm3 (3.65-5.03) 12/11/21 09:26 Hgb 12.2 gm/dl (11.8-15.2) 12/11/21 09:26 Hct 37.5 % (35.5-45.6) 12/11/21 09:26 MCV 102 fl (84-94) H 12/11/21 09:26 MCH 33 pg (28-32) H 12/11/21 09: MCHC 33 % (32-34) 12/11/21 09:26 RDW 15.6 % (13.2-15.2) H 12/11/21 09:26 Plt Count 163 K/mm3 (140-440) 12/11/21 09:26 Lymph % (Auto) 22.4 % (13.4-35.0) 12/11/21 09:26 [place] % (Auto) 11.0 % (0.0-7.3) H 12/11/21 09:26 Eos % (Auto) 1.5 % (0.0-4.3) 12/11/21 09: Baso % (Auto) 0.4 % (0.0-1.8) 12/11/21 09:26 Lymph # (Auto) 1.0 K/mm3 (1.2-5.4) L 12/11/21 09:26 [place] # (Auto) 0.5 K/mm3 (0.0-0.8) 12/11/21 09:26 Eos # (Auto) 0.1 K/mm3 (0.0-0.4) 12/11/21 09:26 Baso # (Auto) 0.0 K/mm3 (0.0-0.1) 12/11/21 09:26 Seg Neutrophils % 64.7 % (40.0-70.0) 12/11/21 09: Seg Neutrophils # 2.8 K/mm3 (1.8-7.7) 12/11/21 09:26 Sodium 142 mmol/L (137-145) 12/11/21 09:26 Potassium 4.6 mmol/L (3.6-5.0) 12/11/21 09:26 Chloride 103.9 mmol/L (98-107) 12/11/21 09:26 Carbon Dioxide 33 mmol/L (22-30) H 12/11/21 09:26 Anion Gap 10 mmol/L 12/11/21 09:26 BUN 21 mg/dL (9-20) H 12/11/21 09:26 Creatinine 1.1 mg/dL (0.8-1.3) 12/11/21 09:26 Estimated GFR > 60 ml/min 12/11/21 09:26 BUN/Creatinine Ratio 19 % 12/11/21 09:26 Glucose 62 mg/dL (75-100) L 12/11/21 09:26 Hemoglobin A1c 5.2 % (4-6) 12/11/21 09:26 Calcium 9.3 mg/dL (8.4-10.2) 12/11/21 09:26 Total Bilirubin 0.30 mg/dL (0.1-1.2) 12/11/21 09:26 AST 22 units/L (5-40) 12/11/21 09:26 ALT 15 units/L (7-56) 12/11/21 09:26 Alkaline Phosphatase 63 units/L (35-129) 12/11/21 09:26 Total Protein 6.1 g/dL (6.3-8.2) L 12/11/21 09:26 Albumin 4.1 g/dL (3.9-5) 12/11/21 09:26 Albumin/Globulin Ratio 2.1 % 12/11/21 09:26 Triglycerides 100 mg/dL (2-149) 12/11/21 09:26 Cholesterol 185 mg/dL (50-199) 12/11/21 09:26 LDL Cholesterol Direct 75 mg/dL (50-130) 12/11/21 09:26 HDL Cholesterol 102 mg/dL (40-59) H 12/11/21 09:26 Cholesterol/HDL Ratio 1.81 % 12/11/21 09:26 TSH 1.130 mlU/mL (0.270-4.200) 12/11/21 09:26 Valproic Acid 43.7 ug/mL (50-100) L 12/18/21 21:40 Last Vital Signs Temp 98.3 F 12/19/21 18:18 Pulse 68 12/19/21 18:18 Resp 18 12/19/21 18:18 BP 114/47 12/19/21 18:21 Pulse Ox 96 12/19/21 18:18
--- NOTE | 2021-12-19 21:56 | Progress Note ---
Subjective Date of service: 12/19/21 Principal diagnosis: MDD Subjective Comment: 12/19: The patient was seen today. Patient reports feeling "lil depressed," with intermittent suicidal ideation w/ plan to shoot himself. Patient reports "it's gotten a lil bit better." Patient continues to endorse anxiety. Patient reports sleeping well and reports "half and half" appetite. Patient reports feeling "dizzy and stuff," and "off balance" when walking around occasionally. 12/18: The patient was seen today. Patient reports "lil less intense" depressed mood with intermittent suicidal ideation. Patient reports he's living a "miserable existence." Patient reports poor sleep and anxiety regarding p lacement "I'm really uptight about what's going to happen." Patient reports okay appetite. Patient denies HI or hallucinations. REVIEW OF SYSTEMS Constitutional: Negative for weight loss ENT: Negative for stridor Respiratory: Negative for cough or hemoptysis All other systems reviewed and are negative MENTAL STATUS EXAMINATION General Appearance and Behavior: Age appropriate, wearing appropriate clothes, cooperative, polite with questioning, good eye contact Cooperation: cooperative Psychomotor Behavior: Psychomotor normal Mood: Depressed Affect and affective range: congruent with stated affect Thought Process: goal directed Thought Content: None Speech: Normal volume, Regular rate and rhythm Suicidal Ideation: Yes Homicidal Ideation: Denies Hallucination: Denies Delusions: None elicited Impulse Control: Limited Insight and Judgment: Limited Memory: Intact Attention: attentive Orientation: Alert and oriented Diagnoses: Major Depressive Disorder Cocaine Use Disorder Alcohol Dependence Treatment Plan Patient admitted for inpatient psychiatric evaluation, medication adjustment and close monitoring The patient's behavior, mood, sleep and appetite will be closely monitored. Patient enrolled in individual and group therapeutic sessions and encouraged to attend. Patient provided with a safe and structured environment.Patient's physical health needs will be addressed by the Hospitalist. Hospitalist Consulted Labs including CBC, CMP, Lipid profile and Hemoglobin A1C levels ordered for baseline reference Social Assessment will be completed and the Deputy Bailiff will work with patient and family to ensure a suitable and safe disposition Medication adjustment will be made as clinically indicated Continue meds: Depakote DR 500mg po BID Lexapro 20 mg qd Vistaril 25 mg q6h PRN for anxiety Trazodone 150mg po qhs [facility] The patient agreed on the treatment plan, understood the risk, benefit, alternative treatment, potential consequence of no treatment, and gave informed consent. Estimated days: 7 Post hospital care: primary care provider, psychiatric provider Case staffed with Dr. Briggs Medications and Allergies Allergies Allergy/AdvReac Type Severity Reaction Status Date / Time No Known Allergies Allergy Verified 12/11/21 02:05 Home Medications Medication Instructions Recorded Confirmed Last Taken Type Amoxicillin [Amoxicillin TAB] 875 mg PO BID 12/11/21 12/11/21 Unknown History Active Meds: Active Medications Divalproex Sodium (Divalproex Dr 500 Mg Tab) 500 mg PO BID [facility] Last Admin: 12/19/21 21:03 Dose: 500 mg Docusate Sodium (Docusate Sodium 100 Mg Cap) 100 mg PO BID [facility] Last Admin: 12/19/21 21:03 Dose: 100 mg Escitalopram Oxalate (Escitalopram 10 Mg Tab) 20 mg PO QDAY [facility] Last Admin: 12/19/21 09:11 Dose: 20 mg Folic Acid (Folic Acid 1 Mg Tab) 1 mg PO QDAY [facility] Last Admin: 12/19/21 09:11 Dose: 1 mg Hydroxyzine Pamoate (Hydroxyzine Pamoate 25 Mg Cap) 25 mg PO Q6H PRN PRN Reason: Anxiety Last Admin: 12/18/21 20:58 Dose: 25 mg Lorazepam (Lorazepam 2 Mg/Ml Vial) 2 mg IM Q4H PRN PRN Reason: AGITATION Magnesium Hydroxide (Magnesium Hydroxide (Mom) Oral Liqd Udc) 30 ml PO Q4H PRN PRN Reason: Constipation Last Admin: 12/14/21 11:39 Dose: 30 ml Multivitamins (Multivitamins ,Therapeutic Tab) 1 each PO QDAY [facility] Last Admin: 12/19/21 09:11 Dose: 1 each Ondansetron HCl (Ondansetron 4 Mg Odt Tab) 4 mg PO Q8H PRN PRN Reason: Nausea And Vomiting Last Admin: 12/13/21 10:16 Dose: 4 mg Trazodone HCl (Trazodone 100 Mg Tab) 100 mg PO QHS [facility] Last Admin: 12/19/21 21:04 Dose: 100 mg Trazodone HCl (Trazodone 100 Mg Tab) 50 mg PO QHS [facility] Last Admin: 12/19/21 21:04 Dose: 50 mg Results - Results Labs/Vitals: Laboratory Last Values WBC 4.3 K/mm3 (4.5-11.0) L 12/11/21 09:26 RBC 3.67 M/mm3 (3.65-5.03) 12/11/21 09:26 Hgb 12.2 gm/dl (11.8-15.2) 12/11/21 09:26 Hct 37.5 % (35.5-45.6) 12/11/21 09:26 MCV 102 fl (84-94) H 12/11/21 09:26 MCH 33 pg (28-32) H 12/11/21 09:26 MCHC 33 % (32-34) 12/11/21 09: RDW 15.6 % (13.2-15.2) H 12/11/21 09:26 Plt Count 163 K/mm3 (140-440) 12/11/21 09:26 Lymph % (Auto) 22.4 % (13.4-35.0) 12/11/21 09:26 [place] % (Auto) 11.0 % (0.0-7.3) H 12/11/21 09:26 Eos % (Auto) 1.5 % (0.0-4.3) 12/11/21 09: Baso % (Auto) 0.4 % (0.0-1.8) 12/11/21 09:26 Lymph # (Auto) 1.0 K/mm3 (1.2-5.4) L 12/11/21 09:26 [place] # (Auto) 0.5 K/mm3 (0.0-0.8) 12/11/21 09:26 Eos # (Auto) 0.1 K/mm3 (0.0-0.4) 12/11/21 09:26 Baso # (Auto) 0.0 K/mm3 (0.0-0.1) 12/11/21 09: Seg Neutrophils % 64.7 % (40.0-70.0) 12/11/21 09: Seg Neutrophils # 2.8 K/mm3 (1.8-7.7) 12/11/21 09:26 Sodium 142 mmol/L (137-145) 12/11/21 09:26 Potassium 4.6 mmol/L (3.6-5.0) 12/11/21 09:26 Chloride 103.9 mmol/L (98-107) 12/11/21 09:26 Carbon Dioxide 33 mmol/L (22-30) H 12/11/21 09:26 Anion Gap 10 mmol/L 12/11/21 09:26 BUN 21 mg/dL (9-20) H 12/11/21 09:26 Creatinine 1.1 mg/dL (0.8-1.3) 12/11/21 09:26 Estimated GFR > 60 ml/min 12/11/21 09:26 BUN/Creatinine Ratio 19 % 12/11/21 09:26 Glucose 62 mg/dL (75-100) L 12/11/21 09:26 Hemoglobin A1c 5.2 % (4-6) 12/11/21 09:26 Calcium 9.3 mg/dL (8.4-10.2) 12/11/21 09:26 Total Bilirubin 0.30 mg/dL (0.1-1.2) 12/11/21 09:26 AST 22 units/L (5-40) 12/11/21 09:26 ALT 15 units/L (7-56) 12/11/21 09:26 Alkaline Phosphatase 63 units/L (35-129) 12/11/21 09:26 Total Protein 6.1 g/dL (6.3-8.2) L 12/11/21 09:26 Albumin 4.1 g/dL (3.9-5) 12/11/21 09:26 Albumin/Globulin Ratio 2.1 % 12/11/21 09:26 Triglycerides 100 mg/dL (2-149) 12/11/21 09:26 Cholesterol 185 mg/dL (50-199) 12/11/21 09:26 LDL Cholesterol Direct 75 mg/dL (50-130) 12/11/21 09:26 HDL Cholesterol 102 mg/dL (40-59) H 12/11/21 09:26 Cholesterol/HDL Ratio 1.81 % 12/11/21 09:26 TSH 1.130 mlU/mL (0.270-4.200) 12/11/21 09:26 Valproic Acid 43.7 ug/mL (50-100) L 12/18/21 21:40 Last Vital Signs Temp 98.3 F 12/19/21 18:18 Pulse 68 12/19/21 18:18 Resp 18 12/19/21 18:18 BP 114/47 12/19/21 18:21 Pulse Ox 96 12/19/21 18:18
[2021-12-20] MEDS: FOLIC ACID 1 MG TAB PO SCH (09:30)
[2021-12-20] MEDS: MULTIVITAMINS ,THERAPEUTIC TAB PO SCH (09:30)
[2021-12-20] MEDS: ESCITALOPRAM 10 MG TAB PO SCH (09:31)
[2021-12-20] MEDS: DIVALPROEX DR 500 MG TAB PO SCH ×2 (09:31→21:51)
[2021-12-20] MEDS: DOCUSATE SODIUM 100 MG CAP PO SCH ×3 (09:33→21:56)
--- NOTE | 2021-12-20 10:12 | Progress Note ---
Subjective Date of service: 12/20/21 Principal diagnosis: MDD Subjective Comment: 12/20: The patient was seen today. Patient was alert and oriented x3 and cooperative throughout the interview. Patient reports feeling "not good," and continues to endorse anxiety and depressed mood with intermittent suicidal ideation with plan. Patient reports poor sleep last night d/t soiling bed from diarrhea. Patient also reports some chest discomfort that started this morning. Patient reports he didn't eat yesterday or breakfast this morning. 12/19: The patient was seen today. Patient reports feeling "lil depressed," with intermittent suicidal ideation w/ plan to shoot himself. Patient reports "it's g carolee a lil bit better." Patient continues to endorse anxiety. Patient reports sleeping well and reports "half and half" appetite. Patient reports feeling "dizzy and stuff," and "off balance" when walking around occasionally. 12/18: The patient was seen today. Patient reports "lil less intense" depressed mood with intermittent suicidal ideation. Patient reports he's living a "miserable existence." Patient reports poor sleep and anxiety regarding placement "I'm really uptight about what's going to happen." Patient reports okay appetite. Patient denies HI or hallucinations. REVIEW OF SYSTEMS Constitutional: Negative for weight loss ENT: Negative for stridor Respiratory: Negative for cough or hemoptysis All other systems reviewed and are negative MENTAL STATUS EXAMINATION General Appearance and Behavior: Age appropriate, wearing appropriate clothes, cooperative, polite with questioning, good eye contact Cooperation: cooperative Psychomotor Behavior: Psychomotor normal Mood: Depressed Affect and affective range: congruent with stated affect Thought Process: goal directed Thought Content: None Speech: Normal volume, Regular rate and rhythm Suicidal Ideation: Yes Homicidal Ideation: Denies Hallucination: Denies Delusions: None elicited Impulse Control: Limited Insight and Judgment: Limited Memory: Intact Attention: attentive Orientation: Alert and oriented Diagnoses: Major Depressive Disorder Cocaine Use Disorder Alcohol Dependence Treatment Plan Patient admitted for inpatient psychiatric evaluation, medication adjustment and close monitoring The patient's behavior, mood, sleep and appetite will be closely monitored. Patient enrolled in individual and group therapeutic sessions and encouraged to attend. Patient provided with a safe and structured environment.Patient's physical health needs will be addressed by the Hospitalist. Hospitalist Consulted Labs including CBC, CMP, Lipid profile and Hemoglobin A1C levels ordered for baseline reference Social Assessment will be completed and the Manager Building will work with patient and family to ensure a suitable and safe disposition Medication adjustment will be made as clinically indicated Consult ordered for medical management of [place]-psych Changed colace from RUBIN to PRN Continue meds: Depakote DR 500mg po BID Lexapro 20 mg qd Vistaril 25 mg q6h PRN for anxiety Trazodone 150mg po qhs Usual Wellness [facility]/Preservation The patient agreed on the treatment plan, understood the risk, benefit, alternative treatment, potential consequence of no treatment, and gave informed consent. Estimated days: 7 Post hospital care: primary care provider, psychiatric provider Case staffed with Dr. Briggs Medications and Allergies Allergies Allergy/AdvReac Type Severity Reaction Status Date / Time No Known Allergies Allergy Verified 12/11/21 02:05 Home Medications Medication Instructions Recorded Confirmed Last Taken Type Amoxicillin [Amoxicillin TAB] 875 mg PO BID 12/11/21 12/11/21 Unknown History Active Meds: Active Medications Divalproex Sodium (Divalproex Dr 500 Mg Tab) 500 mg PO BID [facility] Last Admin: 12/20/21 09:31 Dose: 500 mg Docusate Sodium (Docusate Sodium 100 Mg Cap) 100 mg PO BID [facility] Last Admin: 12/20/21 09:33 Dose: Not Given Escitalopram Oxalate (Escitalopram 10 Mg Tab) 20 mg PO QDAY [facility] Last Admin: 12/20/21 09:31 Dose: 20 mg Folic Acid (Folic Acid 1 Mg Tab) 1 mg PO QDAY [facility] Last Admin: 12/20/21 09:30 Dose: 1 mg Hydroxyzine Pamoate (Hydroxyzine Pamoate 25 Mg Cap) 25 mg PO Q6H PRN PRN Reason: Anxiety Last Admin: 12/18/21 20:58 Dose: 25 mg Lorazepam (Lorazepam 2 Mg/Ml Vial) 2 mg IM Q4H PRN PRN Reason: AGITATION Magnesium Hydroxide (Magnesium Hydroxide (Mom) Oral Liqd Udc) 30 ml PO Q4H PRN PRN Reason: Constipation Last Admin: 12/14/21 11:39 Dose: 30 ml Multivitamins (Multivitamins ,Therapeutic Tab) 1 each PO QDAY [facility] Last Admin: 12/20/21 09:30 Dose: 1 each Ondansetron HCl (Ondansetron 4 Mg Odt Tab) 4 mg PO Q8H PRN PRN Reason: Nausea And Vomiting Last Admin: 12/13/21 10:16 Dose: 4 mg Trazodone HCl (Trazodone 100 Mg Tab) 100 mg PO QHS [facility] Last Admin: 12/19/21 21:04 Dose: 100 mg Trazodone HCl (Trazodone 100 Mg Tab) 50 mg PO QHS [facility] Last Admin: 12/19/21 21:04 Dose: 50 mg Results - Results Labs/Vitals: Laboratory Last Values WBC 4.3 K/mm3 (4.5-11.0) L 12/11/21 09:26 RBC 3.67 M/mm3 (3.65-5.03) 12/11/21 09:26 Hgb 12.2 gm/dl (11.8-15.2) 12/11/21 09:26 Hct 37.5 % (35.5-45.6) 12/11/21 09:26 MCV 102 fl (84-94) H 12/11/21 09:26 MCH 33 pg (28-32) H 12/11/21 09:26 MCHC 33 % (32-34) 12/11/21 09:26 RDW 15.6 % (13.2-15.2) H 12/11/21 09:26 Plt Count 163 K/mm3 (140-440) 12/11/21 09:26 Lymph % (Auto) 22.4 % (13.4-35.0) 12/11/21 09:26 [place] % (Auto) 11.0 % (0.0-7.3) H 12/11/21 09:26 Eos % (Auto) 1.5 % (0.0-4.3) 12/11/21 09:26 Baso % (Auto) 0.4 % (0.0-1.8) 12/11/21 09:26 Lymph # (Auto) 1.0 K/mm3 (1.2-5.4) L 12/11/21 09:26 [place] # (Auto) 0.5 K/mm3 (0.0-0.8) 12/11/21 09:26 Eos # (Auto) 0.1 K/mm3 (0.0-0.4) 12/11/21 09:26 Baso # (Auto) 0.0 K/mm3 (0.0-0.1) 12/11/21 09:26 Seg Neutrophils % 64.7 % (40.0-70.0) 12/11/21 09:26 Seg Neutrophils # 2.8 K/mm3 (1.8-7.7) 12/11/21 09:26 Sodium 142 mmol/L (137-145) 12/11/21 09:26 Potassium 4.6 mmol/L (3.6-5.0) 12/11/21 09:26 Chloride 103.9 mmol/L (98-107) 12/11/21 09:26 Carbon Dioxide 33 mmol/L (22-30) H 12/11/21 09:26 Anion Gap 10 mmol/L 12/11/21 09:26 BUN 21 mg/dL (9-20) H 12/11/21 09:26 Creatinine 1.1 mg/dL (0.8-1.3) 12/11/21 09:26 Estimated GFR > 60 ml/min 12/11/21 09:26 BUN/Creatinine Ratio 19 % 12/11/21 09:26 Glucose 62 mg/dL (75-100) L 12/11/21 09:26 Hemoglobin A1c 5.2 % (4-6) 12/11/21 09:26 Calcium 9.3 mg/dL (8.4-10.2) 12/11/21 09:26 Total Bilirubin 0.30 mg/dL (0.1-1.2) 12/11/21 09:26 AST 22 units/L (5-40) 12/11/21 09:26 ALT 15 units/L (7-56) 12/11/21 09:26 Alkaline Phosphatase 63 units/L (35-129) 12/11/21 09:26 Total Protein 6.1 g/dL (6.3-8.2) L 12/11/21 09:26 Albumin 4.1 g/dL (3.9-5) 12/11/21 09:26 Albumin/Globulin Ratio 2.1 % 12/11/21 09:26 Triglycerides 100 mg/dL (2-149) 12/11/21 09:26 Cholesterol 185 mg/dL (50-199) 12/11/21 09:26 LDL Cholesterol Direct 75 mg/dL (50-130) 12/11/21 09:26 HDL Cholesterol 102 mg/dL (40-59) H 12/11/21 09:26 Cholesterol/HDL Ratio 1.81 % 12/11/21 09:26 TSH 1.130 mlU/mL (0.270-4.200) 12/11/21 09:26 Valproic Acid 43.7 ug/mL (50-100) L 12/18/21 21:40 Last Vital Signs Temp 97.6 F 12/20/21 08:20 Pulse 52 L 12/20/21 08:20 Resp 18 12/20/21 08:20 BP 131/53 12/20/21 08:20 Pulse Ox 96 12/20/21 08:20
[2021-12-20] MEDS: traZODone 100 MG TAB PO SCH ×2 (21:51)
--- NOTE | 2021-12-21 08:20 | Progress Note ---
Subjective Date of service: 12/21/21 Principal diagnosis: MDD Subjective Comment: 12/21: The patient was seen today. Patient was alert and oriented x3 and cooperative throughout the interview. Patient reports feeling "real depressed," with intermittent suicidal ideation and continues to endorse anxiety regarding "life in general." Patient denies change in mood from yesterday. Patient reports 1 episode of diarrhea and 2 episodes chest discomfort since yesterday. Patient reports improved appetite today. Patient reports okay sleep. 12/20: The patient was seen today. Patient was alert and oriented x3 and cooperative throughout the interview. Patient reports feeling "not good," and continues to endorse anxiety and depressed mood with intermittent suicidal ideation with plan. Patient reports poor sleep last night d/t soiling bed from diarrhea. Patient also reports some chest discomfort that started this morning. Patient reports he didn't eat yesterday or breakfast this morning. 12/19: The patient was seen today. Patient reports feeling "lil depressed," with intermittent suicidal ideation w/ plan to shoot himself. Patient reports "it's gotten a lil bit better." Patient continues to endorse anxiety. Patient reports sleeping well and reports "half and half" appetite. Patient reports feeling "dizzy and stuff," and "off balance" when walking around occasionally. 12/18: The patient was seen today. Patient reports "lil less intense" depressed mood with intermittent suicidal ideation. Patient reports he's living a "miserable existence." Patient reports poor sleep and anxiety regarding placement "I'm really uptight about what's going to happen." Patient reports okay appetite. Patient denies HI or hallucinations. REVIEW OF SYSTEMS Constitutional: Negative for weight loss ENT: Negative for stridor Respiratory: Negative for cough or hemoptysis All other systems reviewed and are negative MENTAL STATUS EXAMINATION General Appearance and Behavior: Age appropriate, wearing appropriate clothes, cooperative, polite with questioning, good eye contact Cooperation: cooperative Psychomotor Behavior: Psychomotor normal Mood: Depressed Affect and affective range: congruent with stated affect Thought Process: goal directed Thought Content: None Speech: Normal volume, Regular rate and rhythm Suicidal Ideation: Yes Homicidal Ideation: Denies Hallucination: Denies Delusions: None elicited Impulse Control: Limited Insight and Judgment: Limited Memory: Intact Attention: attentive Orientation: Alert and oriented Diagnoses: Major Depressive Disorder Cocaine Use Disorder Alcohol Dependence Treatment Plan Patient admitted for inpatient psychiatric evaluation, medication adjustment and close monitoring The patient's behavior, mood, sleep and appetite will be closely monitored. Patient enrolled in individual and group therapeutic sessions and encouraged to attend. Patient provided with a safe and structured environment.Patient's physical health needs will be addressed by the Hospitalist. Hospitalist Consulted Labs including CBC, CMP, Lipid profile and Hemoglobin A1C levels ordered for baseline reference Social Assessment will be completed and the Slab Puller will work with patient and family to ensure a suitable and safe disposition Medication adjustment will be made as clinically indicated Continue meds: Depakote DR 500mg po BID Lexapro 20 mg qd Vistaril 25 mg q6h PRN for anxiety Trazodone 150mg po qhs Colace PRN Usual Wellness [facility]/Preservation The patient agreed on the treatment plan, understood the risk, benefit, alter [place] treatment, potential consequence of no treatment, and gave informed consent. Estimated days: 7 Post hospital care: primary care provider, psychiatric provider Case staffed with Dr. Briggs Medications and Allergies Allergies Allergy/AdvReac Type Severity Reaction Status Date / Time No Known Allergies Allergy Verified 12/11/21 02:05 Home Medications Medication Instructions Recorded Confirmed Last Taken Type Amoxicillin [Amoxicillin TAB] 875 mg PO BID 12/11/21 12/11/21 Unknown History Active Meds: Active Medications Divalproex Sodium (Divalproex Dr 500 Mg Tab) 500 mg PO BID [facility] Last Admin: 12/20/21 21:51 Dose: 500 mg Docusate Sodium (Docusate Sodium 100 Mg Cap) 100 mg PO BID [facility] Last Admin: 12/20/21 21:56 Dose: Not Given Escitalopram Oxalate (Escitalopram 10 Mg Tab) 20 mg PO QDAY [facility] Last Admin: 12/20/21 09:31 Dose: 20 mg Folic Acid (Folic Acid 1 Mg Tab) 1 mg PO QDAY [facility] Last Admin: 12/20/21 09:30 Dose: 1 mg Hydroxyzine Pamoate (Hydroxyzine Pamoate 25 Mg Cap) 25 mg PO Q6H PRN PRN Reason: Anxiety Last Admin: 12/18/21 20:58 Dose: 25 mg Lorazepam (Lorazepam 2 Mg/Ml Vial) 2 mg IM Q4H PRN PRN Reason: AGITATION Magnesium Hydroxide (Magnesium Hydroxide (Mom) Oral Liqd Udc) 30 ml PO Q4H PRN PRN Reason: Constipation Last Admin: 12/14/21 11:39 Dose: 30 ml Multivitamins (Multivitamins ,Therapeutic Tab) 1 each PO QDAY [facility] Last Admin: 12/20/21 09:30 Dose: 1 each Ondansetron HCl (Ondansetron 4 Mg Odt Tab) 4 mg PO Q8H PRN PRN Reason: Nausea And Vomiting Last Admin: 12/13/21 10:16 Dose: 4 mg Trazodone HCl (Trazodone 100 Mg Tab) 100 mg PO QHS [facility] Last Admin: 12/20/21 21:51 Dose: 100 mg Trazodone HCl (Trazodone 100 Mg Tab) 50 mg PO QHS [facility] Last Admin: 12/20/21 21:51 Dose: 50 mg Results - Results Labs/Vitals: Laboratory Last Values WBC 4.3 K/mm3 (4.5-11.0) L 12/11/21 09:26 RBC 3.67 M/mm3 (3.65-5.03) 12/11/21 09:26 Hgb 12.2 gm/dl (11.8-15.2) 12/11/21 09:26 Hct 37.5 % (35.5-45.6) 12/11/21 09:26 MCV 102 fl (84-94) H 12/11/21 09:26 MCH 33 pg (28-32) H 12/11/21 09:26 MCHC 33 % (32-34) 12/11/21 09:26 RDW 15.6 % (13.2-15.2) H 12/11/21 09:26 Plt Count 163 K/mm3 (140-440) 12/11/21 09:26 Lymph % (Auto) 22.4 % (13.4-35.0) 12/11/21 09:26 [place] % (Auto) 11.0 % (0.0-7.3) H 12/11/21 09:26 Eos % (Auto) 1.5 % (0.0-4.3) 12/11/21 09:26 Baso % (Auto) 0.4 % (0.0-1.8) 12/11/21 09:26 Lymph # (Auto) 1.0 K/mm3 (1.2-5.4) L 12/11/21 09:26 [place] # (Auto) 0.5 K/mm3 (0.0-0.8) 12/11/21 09:26 Eos # (Auto) 0.1 K/mm3 (0.0-0.4) 12/11/21 09:26 Baso # (Auto) 0.0 K/mm3 (0.0-0.1) 12/11/21 09:26 Seg Neutrophils % 64.7 % (40.0-70.0) 12/11/21 09:26 Seg Neutrophils # 2.8 K/mm3 (1.8-7.7) 12/11/21 09:26 Sodium 142 mmol/L (137-145) 12/11/21 09:26 Potassium 4.6 mmol/L (3.6-5.0) 12/11/21 09:26 Chloride 103.9 mmol/L (98-107) 12/11/21 09:26 Carbon Dioxide 33 mmol/L (22-30) H 12/11/21 09:26 Anion Gap 10 mmol/L 12/11/21 09:26 BUN 21 mg/dL (9-20) H 12/11/21 09:26 Creatinine 1.1 mg/dL (0.8-1.3) 12/11/21 09:26 Estimated GFR > 60 ml/min 12/11/21 09:26 BUN/Creatinine Ratio 19 % 12/11/21 09:26 Glucose 62 mg/dL (75-100) L 12/11/21 09:26 Hemoglobin A1c 5.2 % (4-6) 12/11/21 09:26 Calcium 9.3 mg/dL (8.4-10.2) 12/11/21 09:26 Total Bilirubin 0.30 mg/dL (0.1-1.2) 12/11/21 09:26 AST 22 units/L (5-40) 12/11/21 09:26 ALT 15 units/L (7-56) 12/11/21 09:26 Alkaline Phosphatase 63 units/L (35-129) 12/11/21 09:26 Total Protein 6.1 g/dL (6.3-8.2) L 12/11/21 09:26 Albumin 4.1 g/dL (3.9-5) 12/11/21 09:26 Albumin/Globulin Ratio 2.1 % 12/11/21 09:26 Triglycerides 100 mg/dL (2-149) 12/11/21 09:26 Cholesterol 185 mg/dL (50-199) 12/11/21 09:26 LDL Cholesterol Direct 75 mg/dL (50-130) 12/11/21 09:26 HDL Cholesterol 102 mg/dL (40-59) H 12/11/21 09:26 Cholesterol/HDL Ratio 1.81 % 12/11/21 09:26 TSH 1.130 mlU/mL (0.270-4.200) 12/11/21 09:26 Valproic Acid 43.7 ug/mL (50-100) L 12/18/21 21:40 Last Vital Signs Temp 98.4 F 12/21/21 06:16 Pulse 59 L 12/20/21 19:22 Resp 18 12/21/21 06:16 BP 120/54 12/21/21 06:16 Pulse Ox 97 12/20/21 19:22
[2021-12-21] MEDS: DOCUSATE SODIUM 100 MG CAP PO SCH ×2 (09:22→21:02)
[2021-12-21] MEDS: ESCITALOPRAM 10 MG TAB PO SCH (09:23)
[2021-12-21] MEDS: DIVALPROEX DR 500 MG TAB PO SCH ×2 (09:23→21:00)
[2021-12-21] MEDS: FOLIC ACID 1 MG TAB PO SCH (09:23)
[2021-12-21] MEDS: MULTIVITAMINS ,THERAPEUTIC TAB PO SCH (09:23)
[2021-12-21] MEDS: traZODone 100 MG TAB PO SCH ×2 (21:00→21:01)
[2021-12-22] MEDS: FOLIC ACID 1 MG TAB PO SCH (10:22)
[2021-12-22] MEDS: DIVALPROEX DR 500 MG TAB PO SCH ×2 (10:22→21:47)
[2021-12-22] MEDS: MULTIVITAMINS ,THERAPEUTIC TAB PO SCH (10:22)
[2021-12-22] MEDS: DOCUSATE SODIUM 100 MG CAP PO SCH ×2 (10:22→21:48)
[2021-12-22] MEDS: hydrOXYzine PAMOATE 25 MG CAP PO PRN (10:23)
[2021-12-22] MEDS: ESCITALOPRAM 10 MG TAB PO SCH (10:23)
--- NOTE | 2021-12-22 16:24 | Progress Note ---
Subjective Date of service: 12/22/21 Principal diagnosis: MDD Subjective Comment: 12/22: The patient was seen today. Patient was alert and oriented x3 and cooperative throughout the interview. Patient endorses 8/10 depression. Patient reports poor sleep and appetite. Patient reports SI and worsening anxiety. Patient denies HI. Patient requesting medication "something to feel more relaxed." "I feel like my whole body is in a knot." Patient reports resolution of diarrhea and denies chest discomfort yesterday. 12/21: The patient was seen today. Patient was alert and oriented x3 and cooperative throughout the interview. Patient reports feeling "real depressed," with intermittent suicidal ideation and continues to endorse anxiety regarding "life in general." Patient denies change in mood from yesterday. Patient reports 1 episode of diarrhea and 2 episodes chest discomfort since yesterday. Patient reports improved appetite today. Patient reports okay sleep. 12/20: The patient was seen today. Patient was alert and oriented x3 and cooperative throughout the interview. Patient reports feeling "not good," and continues to endorse anxiety and depressed mood with intermittent suicidal ideation with plan. Patient reports poor sleep last night d/t soiling bed from diarrhea. Patient also reports some chest discomfort that started this morning. Patient reports he didn't eat yesterday or breakfast this morning. 12/19: The patient was seen today. Patient reports feeling "lil depressed," with intermittent suicidal ideation w/ plan to shoot himself. Patient reports "it's gotten a lil bit better." Patient continues to endorse anxiety. Patient reports sleeping well and reports "half and half" appetite. Patient reports feeling "dizzy and stuff," and "off balance" when walking around occasionally. 12/18: The patient was seen today. Patient reports "lil less intense" depressed mood with intermittent suicidal ideation. Patient reports he's living a "miserable existence." Patient reports poor sleep and anxiety regarding placement "I'm really uptight about what's going to happen." Patient reports okay appetite. Patient denies HI or hallucinations. REVIEW OF SYSTEMS Constitutional: Negative for weight loss ENT: Negative for stridor Respiratory: Negative for cough or hemoptysis All other systems reviewed and are negative MENTAL STATUS EXAMINATION General Appearance and Behavior: Age appropriate, wearing appropriate clothes, cooperative, polite with questioning, good eye contact Cooperation: cooperative Psychomotor Behavior: Psychomotor normal Mood: Depressed Affect and affective range: congruent with stated affect Thought Process: goal directed Thought Content: None Speech: Normal volume, slow rate and rhythm Suicidal Ideation: Yes Homicidal Ideation: Denies Hallucination: Denies Delusions: None elicited Impulse Control: Limited Insight and Judgment: Limited Memory: Intact Attention: attentive Orientation: Alert and oriented Diagnoses: Major Depressive Disorder Cocaine Use Disorder Alcohol Dependence Treatment Plan Patient admitted for inpatient psychiatric evaluation, medication adjustment and close monitoring The patient's behavior, mood, sleep and appetite will be closely monitored. Patient enrolled in individual and group therapeutic sessions and encouraged to attend. Patient provided with a safe and structured environment.Patient's physical health needs will be addressed by the Hospitalist. Hospitalist Consulted Labs including CBC, CMP, Lipid profile and Hemoglobin A1C levels ordered for baseline reference Social Assessment will be completed and the Baffle Mounter will work with patient and family to ensure a suitable and safe disposition Medication adjustment will be made as clinically indicated Continue meds: Depakote DR 500mg po BID Lexapro 20 mg qd Change Vistaril 25 mg q6h from PRN to REPLACED BY [facility] for anxiety Trazodone 150mg po qhs Colace PRN Usual Wellness [facility]ianism/Preservation The patient agreed on the treatment plan, understood the risk, benefit, alternative treatment, potential consequence of no treatment, and gave informed consent. Estimated days: 7 Post hospital care: primary care provider, psychiatric provider Case staffed with Dr. Briggs Medications and Allergies Allergies Allergy/AdvReac Type Severity Reaction Status Date / Time No Known Allergies Allergy Verified 12/11/21 02:05 Home Medications Medication Instructions Recorded Confirmed Last Taken Type Amoxicillin [Amoxicillin TAB] 875 mg PO BID 12/11/21 12/11/21 Unknown History Active Meds: Active Medications Divalproex Sodium (Divalproex Dr 500 Mg Tab) 500 mg PO BID [facility] Last Admin: 12/22/21 10:22 Dose: 500 mg Docusate Sodium (Docusate Sodium 100 Mg Cap) 100 mg PO BID [facility] Last Admin: 12/22/21 10:22 Dose: 100 mg Escitalopram Oxalate (Escitalopram 10 Mg Tab) 20 mg PO QDAY [facility] Last Admin: 12/22/21 10:23 Dose: 20 mg Folic Acid (Folic Acid 1 Mg Tab) 1 mg PO QDAY [facility] Last Admin: 12/22/21 10:22 Dose: 1 mg Hydroxyzine Pamoate (Hydroxyzine Pamoate 25 Mg Cap) 25 mg PO Q6H PRN PRN Reason: Anxiety Last Admin: 12/22/21 10:23 Dose: 25 mg Lorazepam (Lorazepam 2 Mg/Ml Vial) 2 mg IM Q4H PRN PRN Reason: AGITATION Magnesium Hydroxide (Magnesium Hydroxide (Mom) Oral Liqd Udc) 30 ml PO Q4H PRN PRN Reason: Constipation Last Admin: 12/14/21 11:39 Dose: 30 ml Multivitamins (Multivitamins ,Therapeutic Tab) 1 each PO QDAY [facility] Last Admin: 12/22/21 10:22 Dose: 1 each Ondansetron HCl (Ondansetron 4 Mg Odt Tab) 4 mg PO Q8H PRN PRN Reason: Nausea And Vomiting Last Admin: 12/13/21 10:16 Dose: 4 mg Trazodone HCl (Trazodone 100 Mg Tab) 100 mg PO QHS [facility]PLAC[facility] Last Admin: 12/21/21 21:00 Dose: 100 mg Trazodone HCl (Trazodone 100 Mg Tab) 50 mg PO QHS [facility]PLAC[facility] Last Admin: 12/21/21 21:01 Dose: 50 mg Results - Results Labs/Vitals: Laboratory Last Values WBC 4.3 K/mm3 (4.5-11.0) L 12/11/21 09:26 RBC 3.67 M/mm3 (3.65-5.03) 12/11/21 09:26 Hgb 12.2 gm/dl (11.8-15.2) 12/11/21 09:26 Hct 37.5 % (35.5-45.6) 12/11/21 09:26 MCV 102 fl (84-94) H 12/11/21 09:26 MCH 33 pg (28-32) H 12/11/21 09:26 MCHC 33 % (32-34) 12/11/21 09:26 RDW 15.6 % (13.2-15.2) H 12/11/21 09:26 Plt Count 163 K/mm3 (140-440) 12/11/21 09:26 Lymph % (Auto) 22.4 % (13.4-35.0) 12/11/21 09:26 [place] % (Auto) 11.0 % (0.0-7.3) H 12/11/21 09:26 Eos % (Auto) 1.5 % (0.0-4.3) 12/11/21 09:26 Baso % (Auto) 0.4 % (0.0-1.8) 12/11/21 09:26 Lymph # (Auto) 1.0 K/mm3 (1.2-5.4) L 12/11/21 09:26 [place] # (Auto) 0.5 K/mm3 (0.0-0.8) 12/11/21 09:26 Eos # (Auto) 0.1 K/mm3 (0.0-0.4) 12/11/21 09:26 Baso # (Auto) 0.0 K/mm3 (0.0-0.1) 12/11/21 09:26 Seg Neutrophils % 64.7 % (40.0-70.0) 12/11/21 09:26 Seg Neutrophils # 2.8 K/mm3 (1.8-7.7) 12/11/21 09:26 Sodium 142 mmol/L (137-145) 12/11/21 09:26 Potassium 4.6 mmol/L (3.6-5.0) 12/11/21 09:26 Chloride 103.9 mmol/L (98-107) 12/11/21 09:26 Carbon Dioxide 33 mmol/L (22-30) H 12/11/21 09:26 Anion Gap 10 mmol/L 12/11/21 09:26 BUN 21 mg/dL (9-20) H 12/11/21 09:26 Creatinine 1.1 mg/dL (0.8-1.3) 12/11/21 09:26 Estimated GFR > 60 ml/min 12/11/21 09:26 BUN/Creatinine Ratio 19 % 12/11/21 09:26 Glucose 62 mg/dL (75-100) L 12/11/21 09:26 Hemoglobin A1c 5.2 % (4-6) 12/11/21 09:26 Calcium 9.3 mg/dL (8.4-10.2) 12/11/21 09:26 Total Bilirubin 0.30 mg/dL (0.1-1.2) 12/11/21 09:26 AST 22 units/L (5-40) 12/11/21 09:26 ALT 15 units/L (7-56) 12/11/21 09:26 Alkaline Phosphatase 63 units/L (35-129) 12/11/21 09:26 Total Protein 6.1 g/dL (6.3-8.2) L 12/11/21 09:26 Albumin 4.1 g/dL (3.9-5) 12/11/21 09:26 Albumin/Globulin Ratio 2.1 % 12/11/21 09:26 Triglycerides 100 mg/dL (2-149) 12/11/21 09:26 Cholesterol 185 mg/dL (50-199) 12/11/21 09:26 LDL Cholesterol Direct 75 mg/dL (50-130) 12/11/21 09:26 HDL Cholesterol 102 mg/dL (40-59) H 12/11/21 09:26 Cholesterol/HDL Ratio 1.81 % 12/11/21 09:26 TSH 1.130 mlU/mL (0.270-4.200) 12/11/21 09:26 Valproic Acid 43.7 ug/mL (50-100) L 12/18/21 21:40 Last Vital Signs Temp 97.9 F 12/22/21 06:17 Pulse 48 L 12/22/21 06:17 Resp 18 12/22/21 06:17 BP 110/41 12/22/21 06:17 Pulse Ox 95 12/22/21 06:17
[2021-12-22] MEDS: traZODone 100 MG TAB PO SCH ×2 (21:47→21:48)
[2021-12-23] MEDS: FOLIC ACID 1 MG TAB PO SCH (09:16)
[2021-12-23] MEDS: MULTIVITAMINS ,THERAPEUTIC TAB PO SCH (09:16)
[2021-12-23] MEDS: ESCITALOPRAM 10 MG TAB PO SCH (09:16)
[2021-12-23] MEDS: DOCUSATE SODIUM 100 MG CAP PO SCH ×2 (09:16→21:12)
[2021-12-23] MEDS: DIVALPROEX DR 500 MG TAB PO SCH ×2 (09:17→21:12)
--- NOTE | 2021-12-23 12:23 | Progress Note ---
Subjective Date of service: 12/23/21 Principal diagnosis: MDD Subjective Comment: 12/23: The patient was seen today. Patient was alert and oriented x3 and cooperative throughout the interview. Patient endorses 7/10 depression and SI with plan "with gun." Patient reports anxiety has improved with hydroxyzine. Patient reports fewer episodes of diarrhea and denies chest discomfort. 12/22: The patient was seen today. Patient was alert and oriented x3 and cooperative throughout the interview. Patient endorses 8/10 depression. Patient reports poor sleep and appetite. Patient reports SI and worsening anxiety. Patient denies HI. Patient requesting medication "something to feel more relaxed." "I feel like my whole body is in a knot." Patient reports resolution of diarrhea and denies chest discomfort yesterday. 12/21: The patient was seen today. Patient was alert and oriented x3 and cooperative throughout the interview. Patient reports feeling "real depressed," with intermittent suicidal ideation and continues to endorse anxiety regarding "life in general." Patient denies change in mood from yesterday. Patient reports 1 episode of diarrhea and 2 episodes chest discomfort since yesterday. Patient reports improved appetite today. Patient reports okay sleep. 12/20: The patient was seen today. Patient was alert and oriented x3 and cooperative throughout the interview. Patient reports feeling "not good," and continues to endorse anxiety and depressed mood with intermittent suicidal ideat ion with plan. Patient reports poor sleep last night d/t soiling bed from diarrhea. Patient also reports some chest discomfort that started this morning. Patient reports he didn't eat yesterday or breakfast this morning. 12/19: The patient was seen today. Patient reports feeling "lil depressed," with intermittent suicidal ideation w/ plan to shoot himself. Patient reports "it's gotten a lil bit better." Patient continues to endorse anxiety. Patient reports sleeping well and reports "half and half" appetite. Patient reports feeling "dizzy and stuff," and "off balance" when walking around occasionally. 12/18: The patient was seen today. Patient reports "lil less intense" depressed mood with intermittent suicidal ideation. Patient reports he's living a "miserable existence." Patient reports poor sleep and anxiety regarding placement "I'm really uptight about what's going to happen." Patient reports okay appetite. Patient denies HI or hallucinations. REVIEW OF SYSTEMS Constitutional: Negative for weight loss ENT: Negative for stridor Respiratory: Negative for cough or hemoptysis All other systems reviewed and are negative MENTAL STATUS EXAMINATION General Appearance and Behavior: Age appropriate, wearing appropriate clothes, cooperative, polite with questioning, good eye contact Cooperation: cooperative Psychomotor Behavior: Psychomotor normal Mood: Depressed Affect and affective range: congruent with stated affect Thought Process: goal directed Thought Content: None Speech: Normal volume, slow rate and rhythm Suicidal Ideation: Yes Homicidal Ideation: Denies Hallucination: Denies Delusions: None elicited Impulse Control: Limited Insight and Judgment: Limited Memory: Intact Attention: attentive Orientation: Alert and oriented Diagnoses: Major Depressive Disorder Cocaine Use Disorder Alcohol Dependence Treatment Plan Patient admitted for inpatient psychiatric evaluation, medication adjustment and close monitoring The patient's behavior, mood, sleep and appetite will be closely monitored. Patient enrolled in individual and group therapeutic sessions and encouraged to attend. Patient provided with a safe and structured environment.Patient's physical health needs will be addressed by the Hospitalist. Hospitalist Consulted Labs including CBC, CMP, Lipid profile and Hemoglobin A1C levels ordered for baseline reference Social Assessment will be completed and the Proposal Manager will work with patient and family to ensure a suitable and safe disposition Medication adjustment will be made as clinically indicated Continue meds: Depakote DR 500mg po BID Lexapro 20 mg qd Vistaril 25 mg q6h Trazodone 150mg po qhs Colace PRN Usual Wellness Protestant/Preservation The patient agreed on the treatment plan, understood the risk, benefit, alternative treatment, potential consequence of no treatment, and gave informed consent. Estimated days: 1 Post hospital care: primary care provider, psychiatric provider Case staffed with Dr. Briggs Medications and Allergies Allergies Allergy/AdvReac Type Severity Reaction Status Date / Time No Known Allergies Allergy Verified 12/11/21 02:05 Home Medications Medication Instructions Recorded Confirmed Last Taken Type Amoxicillin [Amoxicillin TAB] 875 mg PO BID 12/11/21 12/11/21 Unknown History Active Meds: Active Medications Divalproex Sodium (Divalproex Dr 500 Mg Tab) 500 mg PO BID [facility] Last Admin: 12/23/21 09:17 Dose: 500 mg Docusate Sodium (Docusate Sodium 100 Mg Cap) 100 mg PO BID [facility] Last Admin: 12/23/21 09:16 Dose: 100 mg Escitalopram Oxalate (Escitalopram 10 Mg Tab) 20 mg PO QDAY [facility] Last Admin: 12/23/21 09:16 Dose: 20 mg Folic Acid (Folic Acid 1 Mg Tab) 1 mg PO QDAY [facility] Last Admin: 12/23/21 09:16 Dose: 1 mg Hydroxyzine Pamoate (Hydroxyzine Pamoate 25 Mg Cap) 25 mg PO Q6H PRN PRN Reason: Anxiety Last Admin: 12/22/21 10:23 Dose: 25 mg Lorazepam (Lorazepam 2 Mg/Ml Vial) 2 mg IM Q4H PRN PRN Reason: AGITATION Magnesium Hydroxide (Magnesium Hydroxide (Mom) Oral Liqd Udc) 30 ml PO Q4H PRN PRN Reason: Constipation Last Admin: 12/14/21 11:39 Dose: 30 ml Multivitamins (Multivitamins ,Therapeutic Tab) 1 each PO QDAY [facility] Last Admin: 12/23/21 09:16 Dose: 1 each Ondansetron HCl (Ondansetron 4 Mg Odt Tab) 4 mg PO Q8H PRN PRN Reason: Nausea And Vomiting Last Admin: 12/13/21 10:16 Dose: 4 mg Trazodone HCl (Trazodone 100 Mg Tab) 100 mg PO QHS [facility] Last Admin: 12/22/21 21:47 Dose: 100 mg Trazodone HCl (Trazodone 100 Mg Tab) 50 mg PO QHS [facility] Last Admin: 12/22/21 21:48 Dose: 50 mg Results - Results Labs/Vitals: Laboratory Last Values WBC 4.3 K/mm3 (4.5-11.0) L 12/11/21 09:26 RBC 3.67 M/mm3 (3.65-5.03) 12/11/21 09:26 Hgb 12.2 gm/dl (11.8-15.2) 12/11/21 09:26 Hct 37.5 % (35.5-45.6) 12/11/21 09:26 MCV 102 fl (84-94) H 12/11/21 09:26 MCH 33 pg (28-32) H 12/11/21 09:26 MCHC 33 % (32-34) 12/11/21 09:26 RDW 15.6 % (13.2-15.2) H 12/11/21 09:26 Plt Count 163 K/mm3 (140-440) 12/11/21 09:26 Lymph % (Auto) 22.4 % (13.4-35.0) 12/11/21 09:26 [place] % (Auto) 11.0 % (0.0-7.3) H 12/11/21 09:26 Eos % (Auto) 1.5 % (0.0-4.3) 12/11/21 09:26 Baso % (Auto) 0.4 % (0.0-1.8) 12/11/21 09:26 Lymph # (Auto) 1.0 K/mm3 (1.2-5.4) L 12/11/21 09:26 [place] # (Auto) 0.5 K/mm3 (0.0-0.8) 12/11/21 09:26 Eos # (Auto) 0.1 K/mm3 (0.0-0.4) 12/11/21 09:26 Baso # (Auto) 0.0 K/mm3 (0.0-0.1) 12/11/21 09:26 Seg Neutrophils % 64.7 % (40.0-70.0) 12/11/21 09:26 Seg Neutrophils # 2.8 K/mm3 (1.8-7.7) 12/11/21 09:26 Sodium 142 mmol/L (137-145) 12/11/21 09:26 Potassium 4.6 mmol/L (3.6-5.0) 12/11/21 09:26 Chloride 103.9 mmol/L (98-107) 12/11/21 09:26 Carbon Dioxide 33 mmol/L (22-30) H 12/11/21 09:26 Anion Gap 10 mmol/L 12/11/21 09:26 BUN 21 mg/dL (9-20) H 12/11/21 09:26 Creatinine 1.1 mg/dL (0.8-1.3) 12/11/21 09:26 Estimated GFR > 60 ml/min 12/11/21 09:26 BUN/Creatinine Ratio 19 % 12/11/21 09:26 Glucose 62 mg/dL (75-100) L 12/11/21 09:26 Hemoglobin A1c 5.2 % (4-6) 12/11/21 09:26 Calcium 9.3 mg/dL (8.4-10.2) 12/11/21 09:26 Total Bilirubin 0.30 mg/dL (0.1-1.2) 12/11/21 09:26 AST 22 units/L (5-40) 12/11/21 09:26 ALT 15 units/L (7-56) 12/11/21 09:26 Alkaline Phosphatase 63 units/L (35-129) 12/11/21 09:26 Total Protein 6.1 g/dL (6.3-8.2) L 12/11/21 09:26 Albumin 4.1 g/dL (3.9-5) 12/11/21 09:26 Albumin/Globulin Ratio 2.1 % 12/11/21 09:26 Triglycerides 100 mg/dL (2-149) 12/11/21 09:26 Cholesterol 185 mg/dL (50-199) 12/11/21 09:26 LDL Cholesterol Direct 75 mg/dL (50-130) 12/11/21 09:26 HDL Cholesterol 102 mg/dL (40-59) H 12/11/21 09:26 Cholesterol/HDL Ratio 1.81 % 12/11/21 09:26 TSH 1.130 mlU/mL (0.270-4.200) 12/11/21 09:26 Valproic Acid 43.7 ug/mL (50-100) L 12/18/21 21:40 Last Vital Signs Temp 98.4 F 12/23/21 06:18 Pulse 47 L 12/23/21 08:50 Resp 18 12/23/21 06:18 BP 127/50 12/23/21 06:18 Pulse Ox 99 12/22/21 17:04
--- NOTE | 2021-12-23 18:21 | Progress Note ---
Assessment and Plan Assessment and plan: Assessment and plan: The patient is a 76-year-old male past medical history of major depressive disorder who was admitted to the [facility] psych floor for suicidal thoughts and worsening depression. The patient had a plan to shoot himself in the head prior to arrival. With further questioning, the patient endorsed polysubstance dependence such as crack cocaine and increased alcohol consumption (approximately 1-2 pints daily). Patient lives alone and has extremely limited social support. The hospitalist service was consulted for medical management. #Suicidal ideation #Major depressive disorder Management per primary team #Dyspepsia #Gastroesophageal Reflux Disease - complains of dyspepsia, regurgitation - pepcid 20 mg po bid ordered #Possible acute cystitis without hematuria - completed augmentin 875/125mg q12hrs x5 days #cocaine abuse #alcohol abuse #Advanced care planning -Disease education conducted, care plan discussed, diagnoses discussed, prog nosis discussed, and patient acknowledges understanding with care plan -Time: +30 min Thank you for this interesting consult. Hospitalist service will continue to follow. Please do not hesitate to reach out should any questions arise. Disposition Plan: Continue medical management Total Time Spent with Patient (Minutes): 30 minutes History Interval history: no acute complaints Hospitalist Physical - Constitutional Vitals: Temp Pulse Resp BP Pulse Ox 98.4 F 47 L 18 127/50 99 12/23/21 06:18 12/23/21 08:50 12/23/21 06:18 12/23/21 06:18 12/22/21 17:04 General appearance: Present: no acute distress, well-nourished - EENT Eyes: Present: PERRL, EOM intact ENT: hearing intact, clear oral mucosa, dentition normal - Neck Neck: Present: supple, normal ROM - Respiratory Respiratory effort: normal Respiratory: bilateral: CTA - Cardiovascular Rhythm: regular - Extremities Extremities: no ischemia Peripheral Pulses: within normal limits - Abdominal General gastrointestinal: soft, non-tender, non-distended - Integumentary Integumentary: Present: clear, warm, dry - Psychiatric Psychiatric: appropriate mood/affect Results - Labs CBC & Chem 7: 12/11/21 09:26 12/11/21 09:26 Labs: Laboratory Last Values WBC 4.3 K/mm3 (4.5-11.0) L 12/11/21 09:26 RBC 3.67 M/mm3 (3.65-5.03) 12/11/21 09:26 Hgb 12.2 gm/dl (11.8-15.2) 12/11/21 09:26 Hct 37.5 % (35.5-45.6) 12/11/21 09:26 MCV 102 fl (84-94) H 12/11/21 09:26 MCH 33 pg (28-32) H 12/11/21 09: MCHC 33 % (32-34) 12/11/21 09:26 RDW 15.6 % (13.2-15.2) H 12/11/21 09:26 Plt Count 163 K/mm3 (140-440) 12/11/21 09:26 Lymph % (Auto) 22.4 % (13.4-35.0) 12/11/21 09:26 [place] % (Auto) 11.0 % (0.0-7.3) H 12/11/21 09:26 Eos % (Auto) 1.5 % (0.0-4.3) 12/11/21 09:26 Baso % (Auto) 0.4 % (0.0-1.8) 12/11/21 09:26 Lymph # (Auto) 1.0 K/mm3 (1.2-5.4) L 12/11/21 09:26 [place] # (Auto) 0.5 K/mm3 (0.0-0.8) 12/11/21 09:26 Eos # (Auto) 0.1 K/mm3 (0.0-0.4) 12/11/21 09:26 Baso # (Auto) 0.0 K/mm3 (0.0-0.1) 12/11/21 09: Seg Neutrophils % 64.7 % (40.0-70.0) 12/11/21 09: Seg Neutrophils # 2.8 K/mm3 (1.8-7.7) 12/11/21 09:26 Sodium 142 mmol/L (137-145) 12/11/21 09:26 Potassium 4.6 mmol/L (3.6-5.0) 12/11/21 09:26 Chloride 103.9 mmol/L (98-107) 12/11/21 09:26 Carbon Dioxide 33 mmol/L (22-30) H 12/11/21 09:26 Anion Gap 10 mmol/L 12/11/21 09:26 BUN 21 mg/dL (9-20) H 12/11/21 09:26 Creatinine 1.1 mg/dL (0.8-1.3) 12/11/21 09:26 Estimated GFR > 60 ml/min 12/11/21 09:26 BUN/Creatinine Ratio 19 % 12/11/21 09:26 Glucose 62 mg/dL (75-100) L 12/11/21 09:26 Hemoglobin A1c 5.2 % (4-6) 12/11/21 09:26 Calcium 9.3 mg/dL (8.4-10.2) 12/11/21 09:26 Total Bilirubin 0.30 mg/dL (0.1-1.2) 12/11/21 09:26 AST 22 units/L (5-40) 12/11/21 09:26 ALT 15 units/L (7-56) 12/11/21 09:26 Alkaline Phosphatase 63 units/L (35-129) 12/11/21 09:26 Total Protein 6.1 g/dL (6.3-8.2) L 12/11/21 09:26 Albumin 4.1 g/dL (3.9-5) 12/11/21 09:26 Albumin/Globulin Ratio 2.1 % 12/11/21 09:26 Triglycerides 100 mg/dL (2-149) 12/11/21 09:26 Cholesterol 185 mg/dL (50-199) 12/11/21 09:26 LDL Cholesterol Direct 75 mg/dL (50-130) 12/11/21 09:26 HDL Cholesterol 102 mg/dL (40-59) H 12/11/21 09:26 Cholesterol/HDL Ratio 1.81 % 12/11/21 09:26 TSH 1.130 mlU/mL (0.270-4.200) 12/11/21 09:26 Valproic Acid 43.7 ug/mL (50-100) L 12/18/21 21:40 Connell/IV: Voiding Method Toilet Active Medications - Current Medications Current Medications: Generic Name Dose Route Start Last Admin Trade Name Freq PRN Reason Stop Dose Admin Divalproex Sodium 500 mg 12/16/21 10:00 12/23/21 09:[address] 500 Mg Tab PO 500 mg BID RUBIN Administration Docusate Sodium 100 mg 12/14/21 11:00 12/23/21 09:16 Docusate Sodium 100 Mg Cap PO 100 mg BID RUBIN Administration Escitalopram Oxalate 20 mg 12/13/21 10:00 12/23/21 09:16 Escitalopram 10 Mg Tab PO 20 mg QDAY RUBIN Administration Folic Acid 1 mg 12/11/21 12:00 12/23/21 09:16 Folic Acid 1 Mg Tab PO 1 mg QDAY RUBIN Administration Hydroxyzine Pamoate 25 mg 12/17/21 17:18 12/22/21 10:23 Hydroxyzine Pamoate 25 Mg Cap PO 25 mg Q6H PRN Administration Anxiety Lorazepam 2 mg 12/13/21 20:07 Lorazepam 2 Mg/Ml Vial IM Q4H PRN AGITATION Magnesium Hydroxide 30 ml 12/14/21 11:00 12/14/21 11:39 Magnesium Hydroxide (Mom) Oral Liqd Udc PO 30 ml Q4H PRN Administration Constipation Multivitamins 1 each 12/11/21 13:00 12/23/21 09:16 Multivitamins ,Therapeutic Tab PO 1 each QDAY RUBIN Administration Ondansetron HCl 4 mg 12/13/21 08:44 12/13/21 10:16 Ondansetron 4 Mg Odt Tab PO 4 mg Q8H PRN Administration Nausea And Vomiting Trazodone HCl 100 mg 12/17/21 22:00 12/22/21 21:47 Trazodone 100 Mg Tab PO 100 mg QHS RUBIN Administration Trazodone HCl 50 mg 12/18/21 22:00 12/22/21 21:48 Trazodone 100 Mg Tab PO 50 mg QHS RUBIN Administration Nutrition/Malnutrition Assess - Dietary Evaluation Nutrition/Malnutrition Findings: Nutrition Notes Start: 12/18/21 11:01 Freq: Status: Active Protocol: Document 12/18/21 11:01 JOHNNY (Rec: 12/18/21 11:04 JOHNNY [id number]) Nutrition Notes Need for Assessment generated from: LOS Initial or Follow up Brief Note Other Pertinent Diagnosis Polysubstance dependence, Major Depressive D/O Current Diet Regular Height 6 ft 2 in Weight 73 kg [place] Body Weight (kg) 86.36 BMI 20.6 Weight Status Underweight Subjective/Other Information Pt screened for LOS. He has consumed 80% of meals since admission. Percent of energy/protein needs met: 92% energy 81% pro Burn Absent Trauma Absent Current % PO Good (75-100%) Minimum of two criteria No Is patient on ventilator? No Is Patient Ambulatory and/or Out of Bed Yes REE-([facility]-ambulatory/OOB) [ 1982.175 [id number]] Calculation Used for Recommendations [facility] Additional Notes Pro needs 1.2-1.5g/k-110g /day Fluid needs 1ml/kcal Nutrition Intervention Revisit per MD consult or patient Sign Off request:
[2021-12-23] MEDS: traZODone 100 MG TAB PO SCH ×2 (21:12)
[2021-12-23] MEDS ORDERED: FAMOTIDINE 20 MG TAB PO SCH (22:00)
[2021-12-24 07:04] VITALS: BP 130/48
--- NOTE | 2021-12-24 07:54 | Discharge Summary ---
Providers - Providers Date of Admission: 12/11/21 01:57 Date of discharge: 12/24/21 Attending physician: FANY SIDDIQUI MD 12/11/21 01:16 Consult to Physician [CONS] Routine Comment: Consulting Provider: JULIA FELIZ Physician Instructions: Reason For Exam: H & P 12/19/21 21:59 Consult to Physician [CONS] Routine Comment: Consulting Provider: JULIA FELIZ Physician Instructions: Reason For Exam: managing medical conditions of [place]-psych patient Primary care physician: CERTIFIED ORTHOPTIST Hospitalization Reason for admission: Major Depressive Disorder Admitting Diagnosis: F33.9 - MAJOR DEPRESSIVE DISORDER, RECURRENT, UNSPECIFIED Condition: Stable Hospital course: The patient was provided inpatient psychiatric treatment with safe and supportive care, medication adjustment, adverse effect monitoring, medical evaluations, medical treatments, assessment and psycho-education. The patient's mood, cognition, behavior, moral support are improved and stabilized. At the time of discharge, the patient had no endangering behavior and no debilitating adverse effects. The patient agreed on potential consequences of no treatment and gave informed consent. 12/24: The patient was seen today. Patient was alert and oriented x3 and cooperative throughout the interview. Patient reports feeling "okay," and continues to endorse depression and intermittent suicidal ideation. Patient continues to endorse improved anxiety. Patient denies recent episodes of diarrhea or chest discomfort. Patient reports interest in receiving treatment at [facility]. Patient denies homicidal ideation and denies hallucinations of any kind. 12/23: The patient was seen today. Patient was alert and oriented x3 and cooperative throughout the interview. Patient endorses 7/10 depression and SI with plan "with gun." Patient reports anxiety has improved with hydroxyzine. Patient reports fewer episodes of diarrhea and denies chest discomfort. 12/22: The patient was seen today. Patient was alert and oriented x3 and cooperative throughout the interview. Patient endorses 8/10 depression. Patient reports poor sleep and appetite. Patient reports SI and worsening anxiety. Patient denies HI. Patient requesting medication "something to feel more relaxed." "I feel like my whole body is in a knot." Patient reports resolution of diarrhea and denies chest discomfort yesterday. 12/21: The patient was seen today. Patient was alert and oriented x3 and cooperative throughout the interview. Patient reports feeling "real depressed," with intermittent suicidal ideation and continues to endorse anxiety regarding "life in general." Patient denies change in mood from yesterday. Patient reports 1 episode of diarrhea and 2 episodes chest discomfort since yesterday. Patient reports improved appetite today. Patient reports okay sleep. 12/20: The patient was seen today. Patient was alert and oriented x3 and cooperative throughout the interview. Patient reports feeling "not good," and co ntinues to endorse anxiety and depressed mood with intermittent suicidal ideation with plan. Patient reports poor sleep last night d/t soiling bed from diarrhea. Patient also reports some chest discomfort that started this morning. Patient reports he didn't eat yesterday or breakfast this morning. 12/19: The patient was seen today. Patient reports feeling "lil depressed," with intermittent suicidal ideation w/ plan to shoot himself. Patient reports "it's gotten a lil bit better." Patient continues to endorse anxiety. Patient reports sleeping well and reports "half and half" appetite. Patient reports feeling "dizzy and stuff," and "off balance" when walking around occasionally. 12/18: The patient was seen today. Patient reports "lil less intense" depressed mood with intermittent suicidal ideation. Patient reports he's living a "miserable existence." Patient reports poor sleep and anxiety regarding placement "I'm really uptight about what's going to happen." Patient reports okay appetite. Patient denies HI or hallucinations. 12/17: The patient was seen today. The patient says he's doing better, but still endorses SI "on and off." He denies a plan. He says he didn't sleep well. He denies hallucinations. 12/16: The patient was seen today. He says he's a little better but still d epressed. He still endorses suicidal thoughts, but has no plan. He denies hallucinations of any kind. 12/15: The patient was seen today. The patient says he feels a little better, but still says he's depressed. He still endorses SI. He denies a plan. 12/14: The patient was seen today. He says he is depressed and suicidal. The patient says he plans to borrow a gun and shoot himself. The patient denies hallucinations. He complains of being constipated. 12/13: The patient was seen today. He says he is not good. The patient says he still feels depressed and suicidal. He denies having a plan to harm himself. He denies hallucinations. 12/12: The patient was seen today. He still endorses suicidal thoughts, but denies a plan. He says he's very depressed. The patient says he only slept "so- so." He denies hallucinations of any kind. 12/11: The patient was seen today. He is a 76y/o male patient admitted to [facility] for suicidal thoughts and depression. The patient had a plan to shoot himself in the head, prior to arrival. The patient is [place]. He says he endorses crack use. The patient also says he drinks about a pint or two pints daily. He says he is lonely, has no family and lacks support. The patient denies being on any psych meds or seeing a psychiatrist. He denies hallucinations. Disposition: 01 HOME / SELF CARE / HOMELESS Time spent for discharge: 35 Allergies/Adverse Reactions: Allergies No Known Allergies Allergy (Verified 12/11/21 02:05) Vital Signs: Last Vital Signs Temp 97.4 F L 12/24/21 05:57 Pulse 50 L 12/23/21 19:00 Resp 18 12/24/21 05:57 BP 130/48 12/24/21 05:57 Pulse Ox 96 12/23/21 19:00 Last Lab: Laboratory Last Values WBC 4.3 K/mm3 (4.5-11.0) L 12/11/21 09:26 RBC 3.67 M/mm3 (3.65-5.03) 12/11/21 09:26 Hgb 12.2 gm/dl (11.8-15.2) 12/11/21 09:26 Hct 37.5 % (35.5-45.6) 12/11/21 09:26 MCV 102 fl (84-94) H 12/11/21 09:26 MCH 33 pg (28-32) H 12/11/21 09:26 MCHC 33 % (32-34) 12/11/21 09:26 RDW 15.6 % (13.2-15.2) H 12/11/21 09:26 Plt Count 163 K/mm3 (140-440) 12/11/21 09:26 Lymph % (Auto) 22.4 % (13.4-35.0) 12/11/21 09:26 Evangeline % (Auto) 11.0 % (0.0-7.3) H 12/11/21 09:26 Eos % (Auto) 1.5 % (0.0-4.3) 12/11/21 09:26 Baso % (Auto) 0.4 % (0.0-1.8) 12/11/21 09:26 Lymph # (Auto) 1.0 K/mm3 (1.2-5.4) L 12/11/21 09:26 Evangeline # (Auto) 0.5 K/mm3 (0.0-0.8) 12/11/21 09:26 Eos # (Auto) 0.1 K/mm3 (0.0-0.4) 12/11/21 09:26 Baso # (Auto) 0.0 K/mm3 (0.0-0.1) 12/11/21 09:26 Seg Neutrophils % 64.7 % (40.0-70.0) 12/11/21 09:26 Seg Neutrophils # 2.8 K/mm3 (1.8-7.7) 12/11/21 09:26 Sodium 142 mmol/L (137-145) 12/11/21 09:26 Potassium 4.6 mmol/L (3.6-5.0) 12/11/21 09:26 Chloride 103.9 mmol/L (98-107) 12/11/21 09:26 Carbon Dioxide 33 mmol/L (22-30) H 12/11/21 09:26 Anion Gap 10 mmol/L 12/11/21 09:26 BUN 21 mg/dL (9-20) H 12/11/21 09:26 Creatinine 1.1 mg/dL (0.8-1.3) 12/11/21 09:26 Estimated GFR > 60 ml/min 12/11/21 09:26 BUN/Creatinine Ratio 19 % 12/11/21 09:26 Glucose 62 mg/dL (75-100) L 12/11/21 09:26 Hemoglobin A1c 5.2 % (4-6) 12/11/21 09:26 Calcium 9.3 mg/dL (8.4-10.2) 12/11/21 09:26 Total Bilirubin 0.30 mg/dL (0.1-1.2) 12/11/21 09:26 AST 22 units/L (5-40) 12/11/21 09:26 ALT 15 units/L (7-56) 12/11/21 09:26 Alkaline Phosphatase 63 units/L (35-129) 12/11/21 09:26 Total Protein 6.1 g/dL (6.3-8.2) L 12/11/21 09:26 Albumin 4.1 g/dL (3.9-5) 12/11/21 09:26 Albumin/Globulin Ratio 2.1 % 12/11/21 09:26 Triglycerides 100 mg/dL (2-149) 12/11/21 09:26 Cholesterol 185 mg/dL (50-199) 12/11/21 09:26 LDL Cholesterol Direct 75 mg/dL (50-130) 12/11/21 09:26 HDL Cholesterol 102 mg/dL (40-59) H 12/11/21 09:26 Cholesterol/HDL Ratio 1.81 % 12/11/21 09:26 TSH 1.130 mlU/mL (0.270-4.200) 12/11/21 09:26 Valproic Acid 43.7 ug/mL (50-100) L 12/18/21 21:40 - Discharge Diagnoses (1) Major depression Status: Acute Core Measure Documentation - Palliative Care Palliative Care/ Comfort Measures: Not Applicable - Core Measures Any of the following diagnoses?: none Exam - Physical Exam Narrative exam: MENTAL STATUS EXAMINATION General Appearance and Behavior: Age appropriate, wearing appropriate clothes, cooperative, polite with questioning, good eye contact Cooperation: cooperative Psychomotor Behavior: Psychomotor normal Mood: Depressed Affect and affective range: congruent with stated affect Thought Process: goal directed Thought Content: reality-based Speech: Normal volume, slow rate and rhythm Suicidal Ideation: Yes Homicidal Ideation: Denies Hallucination: Denies Delusions: None elicited Impulse Control: Fair Insight and Judgment: Fair Memory: Intact Attention: attentive Orientation: Alert and oriented x3 - Constitutional Vitals: Temp Pulse Resp BP Pulse Ox 97.4 F L 50 L 18 130/48 96 12/24/21 05:57 12/23/21 19:00 12/24/21 05:57 12/24/21 05:57 12/23/21 19:00 General appearance: Present: no acute distress - EENT Eyes: Present: PERRL ENT: hearing intact - Neck Neck: Present: supple, normal ROM - Respiratory Respiratory effort: normal Plan Activity: advance as tolerated Weight Bearing Status: Weight Bear as Tolerated Diet: regular Care Plan Goals: Maintain good and stable mental health Plan of Treatment: The patient should be compliant with medications, not to use drugs, and not to drink alcohol. The patient understands that if suicidal ideas, homicidal ideas or any endangering feeling arise, the patient should seek assistance including, but not limited to crisis hotline, and emergency room. Patient to be discharged to [facility] at [place] Assessment: Major Depressive Disorder Cocaine Use Disorder Alcohol Dependence Follow up with: PRIMARY CARE, [Primary Care Provider] - 7 Days Prescriptions: traZODone [Desyrel] 100 mg PO QHS 30 Days #30 tab traZODone [Desyrel] 50 mg PO QHS 30 Days #30 tab Divalproex [Kristyn IRWIN] 500 mg PO BID 30 Days #60 tablet Escitalopram [Lexapro] 10 mg PO DAILY 30 Days #60 tablet hydrOXYzine PAMOATE [Vistaril] 25 mg PO Q6HR PRN 30 Days #120 capsule PRN Reason: Anxiety
== END 2021-12-24 08:20 | DRG 885 ==
LOC: 3A 13:59 → UNDOADMIN 13:59 → 5A 12-11 01:57
PROVIDERS: ADMIT Psychiatry & Neurology Psychiatry; ATTEND Psychiatry & Neurology Psychiatry
DX: F33.9 Major depressive disorder, recurrent, unspecified (principal); R45.851 Suicidal ideations; F01.51 Vascular dementia, unspecified severity, with behavioral disturbance; N30.00 Acute cystitis without hematuria; F10.20 Alcohol dependence, uncomplicated; Y90.9 Presence of alcohol in blood, level not specified; Z85.46 Personal history of malignant neoplasm of prostate; I67.2 Cerebral atherosclerosis; K21.9 Gastro-esophageal reflux disease without esophagitis; F14.10 Cocaine abuse, uncomplicated; R10.13 Epigastric pain
CPT/HCPCS: 36415; 80053; 80061; 80164; 83036; 84443; 85025; G0378; J3490; Q0162